=== PATIENT | female | born 1945 | race Caucasian/White ===

== ENCOUNTER → 2017-05-21 | Outpatient (CLI) | payer MEDICARE, BC ==
--- NOTE | 2017-05-21 14:15 | NM ---
EXAMINATION TYPE: NM bone scan whole body DATE OF EXAM: 05/21/2017 COMPARISON: Outside x-rays dated 05/13/2017 HISTORY: Back pain Delayed whole-body scanning was performed following the injection of 25.4 mCi Tc 99m MDP. Images acq uired 3.5 hours post injection. FINDINGS: There is a scoliotic curvature of the spine with abnormal increased uptake particularly along the lef t lateral margin of the mid and lower thoracic and upper lumbar spine most typical degenerative pritchard e or hypertrophic changes which are compatible with findings on x-ray. Faint uptake involving the remainder of the lumbar spine greatest at L4-5 and L5-S1 appears to be deg enerative. Photopenic defects involving the knees are compatible with previous surgery. Abnormal uptake involving the left maxilla likely related to periodontal disease. Abnormal uptake involving the ankles, feet and shoulders likely post arthritic. Or focal intense area of abnormal signal involving the tarsal metatarsal junction of the right foot likely related to prev ious trauma or fracture. Correlate clinically. IMPRESSION: 1. Abnormal uptake throughout the vertebral column appears to be compatible with degenerative change
== END | disposition home or self-care (01) ==
LOC: RADNMMAIN 09:46
PROVIDERS: ATTEND Physical Medicine & Rehabilitation
DX: M47.817 Spondylosis without myelopathy or radiculopathy, lumbosacral region (principal); M54.6 Pain in thoracic spine; Z96.653 Presence of artificial knee joint, bilateral
CPT/HCPCS: 78306; A9503

== ENCOUNTER 2018-12-26 14:05 | Emergency (ER) | payer MEDICARE, BC ==
[2018-12-26] MEDS ORDERED: MORPHINE SULFATE 4 MG/ML SYRINGE IVP STA (14:53)
--- NOTE | 2018-12-26 16:25 | XR ---
EXAMINATION TYPE: XR humerus LT DATE OF EXAM: 12/26/2018 COMPARISON: Shoulder same date HISTORY: Fall, pain TECHNIQUE: 2 view left humerus FINDINGS: There is a fracture through the surgical neck of the humerus. The humeral head articulates with the glenoid. Elbow appears intact. No additional fractures are evident IMPRESSION: 1. Fracture of the surgical neck of the left humerus.
--- NOTE | 2018-12-26 16:26 | XR ---
EXAMINATION TYPE: XR shoulder complete LT DATE OF EXAM: 12/26/2018 COMPARISON: NONE HISTORY: Pain TECHNIQUE: Shoulder examined in 3 views FINDINGS: There is a fracture of the neck of the humerus. The humeral head articulates with the glenoid. No clavicular joint hypertrophy is present IMPRESSION: 1. Fracture of the neck of the humerus.
--- NOTE | 2018-12-26 16:35 | ED ---
General Adult HPI - General Chief complaint: Fall Stated complaint: FALL/ LT ARM/SHOULDER Time Seen by Provider: 12/26/18 14:11 Source: patient, RN notes reviewed Mode of arrival: EMS Limitations: no limitations - History of Present Illness Initial comments: 73-year-old female presents to the emergency department after tripping over her carpet about 30 minutes prior to arrival. Patient denies hitting her head but does admit to left-sided neck pain. Patient states she has pain in her left shoulder. Patient denies any dizziness or lightheadedness preceding the fall.Patient has no other complaints at this time including shortness of breath , chest pain, abdominal pain, nausea or vomiting, headache, or visual changes. - Related Data Home Medications Medication Instructions Recorded Confirmed Calcium Carbonate/Vitamin D3 1 tab PO DAILY 12/26/18 12/26/18 [Calcium 500-Vit D3 200 Tablet] Cyanocobalamin (Vitamin B-12) 1,000 mcg PO DAILY 12/26/18 12/26/18 [Vitamin B-12] Multivitamins, Thera [Multivitamin 1 tab PO DAILY 12/26/18 12/26/18 (formulary)] Turmeric Root Extract [Turmeric] 500 mg PO DAILY 12/26/18 12/26/18 Vitamin B Complex 1 cap PO DAILY 12/26/18 12/26/18 Previous Rx's Medication Instructions Recorded HYDROcodone/APAP 5-325MG [[place] 1 tab PO Q6HR PRN #12 tab 12/26/18 5-325] Allergies Allergy/AdvReac Type Severity Reaction Status Date / Time nickel AdvReac Rash/Hives Verified 12/26/18 14:20 silver sulfadiazine AdvReac Rash/Hives Verified 12/26/18 14:20 [From Silvadene] Review of Systems ROS Statement: Those systems with pertinent positive or pertinent negative responses have been documented in the HPI. ROS Other: All systems not noted in ROS Statement are negative. Past Medical History Past Medical History: No Reported History History of Any Multi-Drug Resistant Organisms: None Reported Past Surgical History: Joint Replacement, Orthopedic Surgery Past Psychological History: No Psychological Hx Reported Smoking Status: Never smoker Past Alcohol Use History: Occasional Past Drug Use History: None Reported General Exam Limitations: no limitations General appearance: alert, in no apparent distress Head exam: Present: atraumatic, normocephalic, normal inspection Eye exam: Present: normal appearance, PERRL, EOMI. Absent: scleral icterus, conjunctival injection, periorbital swelling ENT exam: Present: normal exam, normal oropharynx, mucous membranes moist, TM's normal bilaterally (neg hemotympanum), normal external ear exam Neck exam: Present: normal inspection, tenderness (C7 tenderness), other (in c collar). Absent: meningismus, lymphadenopathy Respiratory exam: Present: normal lung sounds bilaterally. Absent: respiratory distress, wheezes, rales, rhonchi, stridor Cardiovascular Exam: Present: regular rate, normal rhythm, normal heart sounds. Absent: systolic murmur, diastolic murmur, rubs, gallop, clicks Extremities exam: Present: normal capillary refill (Capillary refill less than 2 seconds and radial pulse 2+ in the left upper extremity). 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 No dizziness or lightheadedness preceding this fall. CT brain shows no acute intracranial process. CT C-spine negative. However shoulder x- ray does show fracture of the neck of the humerus. Neurovascular intact in the left upper extremity. I did put sling on patient and nature she gets and out of bed on her own. Patient ambulated to the bathroom as well. Patient does have help at home from her . Patient feels comfortable going home at this time. However discussed returning here if she has any worsening symptoms or is unable to stay at home. Patient is hypertensive on presentation which is likely due to pain as she did become less hypertensive throughout her stay. Patient is asymptomatic otherwise. Disposition Clinical Impression: Fracture of neck of humerus Disposition: HOME SELF-CARE Condition: Good Instructions (If sedation given, give patient instructions): Arm Fracture in Adults (ED), Fall Prevention for Older Adults (ED) Additional Instructions: Please take pain medicine as needed. Please follow-up with orthopedics tomorrow. Please return here to the emergency department if you have any worsening symptoms. Prescriptions: HYDROcodone/APAP 5-325MG [[place] 5-325] 1 tab PO Q6HR PRN #12 tab PRN Reason: Pain Is patient prescribed a controlled substance at d/c from ED?: No Referrals: Chuckie Levin MD [Primary Care Provider] - 1-2 days Moustapha Novak MD [STAFF PHYSICIAN] - 1-2 days Time of Disposition: 17:58
--- NOTE | 2018-12-26 16:39 | CT ---
EXAMINATION TYPE: CT brain eben wo con DATE OF EXAM: 12/26/2018 COMPARISON: None HISTORY: Fall injury CT DLP: 1262.5 mGycm, Automated exposure control for dose reduction was used. CONTRAST: Patient injected with 0 mL of Isovue 300. CT of the brain is performed utilizing 3 mm thick sections through the posterior fossa and 3 mm thick sections through the remaining calvarium. Study is performed within 24 hours of arrival to the hospital. No abnormal hyperdensity is present to suggest an acute intracranial hemorrhage. No mass lesion is evident. No acute infarcts are evident. Signal within the brain appears appropriate. Ventricles and sulci are appropriate for the patient age. Paranasal sinuses and mastoid air cells within the pymij-mo-kaks are clear. IMPRESSIONS: 1. No acute intracranial process. CT cervical spine. COMPARISON: None CT of the cervical spine is performed in the axial plane at 2 mm thick sections. Reconstructed image s in the coronal, and sagittal plane are reviewed on the computer. No acute fractures are evident. Vertebral body alignment is normal. Disc heights are preserved. Vertebral body heights are preserved. No spinal canal stenosis is evident. Facet hypertrophy is present on the right at C2-C3. Uncovertebral joint hypertrophy has severe right foraminal stenosis C3-4. Intimal grade 1 spondylolisthesis of C3 anterior on C4 is present. There is loss of disc height C5-6. Uncovertebral hypertrophy is severe left foraminal stenosis at thi s. Some central spurring is present with mild anterior thecal sac compression superior endplate C6. IMPRESSIONS: 1. Degenerative disc changes with uncovertebral joint hypertrophy contributing to foraminal stenosis discussed above. 2. Minimal grade 1 spondylolisthesis of C3 anterior on C4.
[2018-12-26] MEDS ORDERED: HYDROcodone/APAP 5-325MG 1 EACH TAB PO STA (18:19)
[2018-12-26 18:35] VITALS: BP 175/86; PULSE 68; RESP 18; TEMP 98.6
== END 2018-12-26 18:32 | disposition home or self-care (01) ==
LOC: EC 14:05
DX: S42.212A Unspecified displaced fracture of surgical neck of left humerus, initial encounter for closed fracture (principal); M54.2 Cervicalgia; R03.0 Elevated blood-pressure reading, without diagnosis of hypertension; Z91.048 Other nonmedicinal substance allergy status; Z88.8 Allergy status to other drugs, medicaments and biological substances; Z96.89 Presence of other specified functional implants; W18.09XA Striking against other object with subsequent fall, initial encounter; Y92.009 Unspecified place in unspecified non-institutional (private) residence as the place of occurrence of the external cause
CPT/HCPCS: 73030; 73060; 72125; 70450; 99284; 96374; J2270

== ENCOUNTER → 2019-01-03 | Outpatient (CLI) | payer MEDICARE, BC ==
--- NOTE | 2019-01-04 05:29 | CT ---
EXAMINATION TYPE: CT shoulder LT wo con DATE OF EXAM: 01/03/2019 COMPARISON: Radiograph 12/26/2018 HISTORY: 73-year-old female Left shoulder pain after fall. TECHNIQUE: Contiguous axial scanning of the left shoulder without IV contrast. Coronal and sagittal r econstructions performed. 3-D reconstructions generated on a dedicated independent workstation. CT DLP: 279.5 mGycm Automated exposure control for dose reduction was used. FINDINGS: Moderate degenerative joint space narrowing and marginal spurring at the AC joint. No dislocation at the glenohumeral joint. There is inferior and joint subluxation noted and joint eff usion. Mild fatty infiltration of the supraspinatus muscle and mild to moderate of the infraspinatus muscle belly. There is an impacted surgical neck fracture with impaction measuring 1.2 cm. There is medial displace ment of 1.0 cm. There is anterior comminution extending along the bicipital groove and additional com minuted cortical fragments of the lateral humeral head displacement 1.2 cm. Low mild comminution extends to involve the superior facet of the greater tuberosity, no significant displacement is present here. Prominent patchy peribronchovascular opacity visualized left lower lobe probably prominent atelectasi s. IMPRESSION: 1. AT LEAST 2 PART PROXIMAL HUMERAL FRACTURE AT THE LEVEL OF THE SURGICAL NECK. THE FRACTURE SHOWS IM PACTION BY 1.2 CM AND MEDIAL DISPLACEMENT BY 1.0 CM. 2. THERE IS COMMINUTION ALONG THE LATERAL CORTICAL MARGIN WITH CORTICAL FRAGMENT DISPLACED UP TO 1.2 CM AND ADDITIONAL COMMINUTION EXTENDING INTO THE SUPERIOR FACET OF THE GREATER TUBEROSITY WITHOUT SIG NIFICANT DISPLACEMENT HERE. ADDITIONAL PROMINENT COMMINUTION ANTERIORLY ALONG THE BICIPITAL GROOVE. 3. ASSOCIATED JOINT EFFUSION AND INFERIOR GLENOHUMERAL JOINT SUBLUXATION. 4. MODERATE AC JOINT OA. 5. MILD ATROPHY OF THE SUPRASPINATUS MUSCLE AND MILD TO MODERATE OF THE INFRASPINATUS MUSCLE. FURTHER CLINICAL CORRELATION RECOMMENDED FOR THE POSSIBILITY OF UNDERLYING ROTATOR CUFF TEAR.
== END ==
LOC: RADCTMAIN 15:54
PROVIDERS: ATTEND Orthopaedic Surgery
DX: S42.222A 2-part displaced fracture of surgical neck of left humerus, initial encounter for closed fracture (principal); M62.512 Muscle wasting and atrophy, not elsewhere classified, left shoulder; M19.012 Primary osteoarthritis, left shoulder

== ENCOUNTER 2021-03-27 18:50 | Emergency (ER) | payer MEDICARE, BC ==
[2021-03-27] MEDS ORDERED: HYDROmorphone 0.5 MG/0.5 ML SYRINGE IVP STA (19:19)
--- NOTE | 2021-03-27 19:28 | ED ---
General Adult HPI - General Chief complaint: Headache Stated complaint: hypertensive Time Seen by Provider: 03/27/21 19:14 Source: patient, RN notes reviewed, old records reviewed Mode of arrival: EMS Limitations: no limitations - History of Present Illness Initial comments: 75-year-old female presenting with chief complaint of headache. Headache began one hour prior to arrival. She was transported by EMS. She denies any anticoagulation. She is complaining of a left-sided headache which is both retro-orbital and occipital. She reports some associated neck discomfort as well. No focal numbness or weakness. No chest pain. No vomiting. She states that she has felt unwell for the past 2 weeks, and low energy. Her had similar symptoms. She has not been vaccinated against coronavirus. - Related Data Home Medications Medication Instructions Recorded Confirmed Cyanocobalamin (Vitamin B-12) 1,000 mcg PO DAILY 12/26/18 03/27/21 [Vitamin B-12] Vitamin B Complex 1 cap PO DAILY 12/26/18 03/27/21 Cholecalciferol [Vitamin D3 (25 25 mcg PO DAILY 03/27/21 03/27/21 Mcg = 1000 Iu)] Sennosides/Docusate Sodium [Senna 1 cap PO DAILY 03/27/21 03/27/21 Plus 8.6-50 mg Softgel] buPROPion SR [Wellbutrin Sr] 100 mg PO DAILY PRN 03/27/21 03/27/21 Allergies Allergy/AdvReac Type Severity Reaction Status Date / Time nickel AdvReac Rash/Hives Verified 03/27/21 19:57 silver sulfadiazine AdvReac Rash/Hives Verified 03/27/21 19:57 [From William] Review of Systems ROS Statement: Those systems with pertinent positive or pertinent negative responses have been documented in the HPI. ROS Other: All systems not noted in ROS Statement are negative. Past Medical History Past Medical History: No Reported History History of Any Multi-Drug Resistant Organisms: None Reported Past Surgical History: Joint Replacement, Orthopedic Surgery Past Psychological History: No Psychological Hx Reported Smoking Status: Never smoker Past Alcohol Use History: Occasional Past Drug Use History: None Reported General Exam Limitations: no limitations General appearance: alert, in no apparent distress Head exam: Present: atraumatic, normocephalic Eye exam: Present: normal appearance, PERRL ENT exam: Present: normal exam Neck exam: Present: normal inspection. Absent: tenderness, meningismus Respiratory exam: Present: normal lung sounds bilaterally. Absent: respiratory distress, wheezes Cardiovascular Exam: Present: regular rate, normal rhythm GI/Abdominal exam: Present: soft. Absent: distended, tenderness, guarding, rebound Extremities exam: Present: normal inspection, normal capillary refill. Absent: pedal edema Neurological exam: Present: alert, oriented X3, CN II-XII intact. Absent: motor sensory deficit Psychiatric exam: Present: normal affect, normal mood Skin exam: Present: warm, dry, intact. Absent: cyanosis, diaphoretic Course Vital Signs 03/27/21 18:55 Temperature 98.1 F Pulse Rate 82 Respiratory 16 Rate Blood Pressure 196/105 O2 Sat by Pulse 96 Oximetry - Reevaluation(s) Reevaluation #1: 03/27/21 21:26 On reevaluation feeling much better, blood pressure has improved. EKG Findings - EKG Comments: EKG Findings:: Normal sinus rhythm, rate of 85, NE interval 192, QRS duration 84, QTC 435, no ST segment elevation. Medical Decision Making - Medical Decision Making 75-year-old female presented with chief complaint of headache in 2 weeks of low energy not feeling well. Her headache was OF a sudden in onset and therefore both CT and CT angiography was performed. This was within one to 2 hours of symptom onset. This is negative for intracranial hemorrhage, no acute findings, angiography negative for aneurysm. She has a normal CBC, normal CMP. Given the 2 weeks of malaise I did perform a nasal swab for coronavirus which is positive. She's outside and treatment window as he symptoms have been present for 2 weeks. She will monitor her elevated blood pressure at home and treat a blood pressure log for her primary care physician. She has no chest pain or dyspnea. No hypoxia. She will follow with her primary care regarding headache as well. She is given return parameters. - Lab Data Result diagrams: 03/27/21 19:45 03/27/21 19:45 Lab Results 03/27/21 03/27/21 03/27/21 Range/Units 19:45 19:45 19:45 WBC 5.5 (3.8-10.6) k/uL RBC 4.52 (3.80-5.40) m/uL Hgb 14.5 (11.4-16.0) gm/dL Hct 42.2 (34.0-46.0) % MCV 93.4 (80.0-100.0) fL MCH 32.1 (25.0-35.0) pg MCHC 34.4 (31.0-37.0) g/dL RDW 11.4 L (11.5-15.5) % Plt Count 279 (150-450) k/uL MPV 7.8 Neutrophils % 71 % Lymphocytes % 18 % Monocytes % 7 % Eosinophils % 2 % Basophils % 1 % Neutrophils # 3.9 (1.3-7.7) k/uL Lymphocytes # 1.0 (1.0-4.8) k/uL Monocytes # 0.4 (0-1.0) k/uL Eosinophils # 0.1 (0-0.7) k/uL Basophils # 0.0 (0-0.2) k/uL PT 9.9 (9.0-12.0) sec INR 0.9 (<1.2) APTT 20.3 L (22.0-30.0) sec Sodium 135 L (137-145) mmol/L Potassium 4.2 (3.5-5.1) mmol/L Chloride 101 (98-107) mmol/L Carbon Dioxide 28 (22-30) mmol/L Anion Gap 6 mmol/L BUN 12 (7-17) mg/dL Creatinine 0.79 (0.52-1.04) mg/dL Est GFR (CKD-EPI)AfAm 85 (>60 ml/min/1.73 sqM) Est GFR (CKD-EPI)NonAf 74 (>60 ml/min/1.73 sqM) Glucose 92 (74-99) mg/dL Calcium 9.5 (8.4-10.2) mg/dL Magnesium 2.0 (1.6-2.3) mg/dL Total Bilirubin 0.7 (0.2-1.3) mg/dL AST 35 (14-36) U/L ALT 18 (4-34) U/L Alkaline Phosphatase 86 (38-126) U/L Total Protein 6.3 (6.3-8.2) g/dL Albumin 3.3 L (3.5-5.0) g/dL Coronavirus (PCR) (Not Detectd) 03/27/21 Range/Units 21:02 WBC (3.8-10.6) k/uL RBC (3.80-5.40) m/uL Hgb (11.4-16.0) gm/dL Hct (34.0-46.0) % MCV (80.0-100.0) fL MCH (25.0-35.0) pg MCHC (31.0-37.0) g/dL RDW (11.5-15.5) % Plt Count (150-450) k/uL MPV Neutrophils % % Lymphocytes % % Monocytes % % Eosinophils % % Basophils % % Neutrophils # (1.3-7.7) k/uL Lymphocytes # (1.0-4.8) k/uL Monocytes # (0-1.0) k/uL Eosinophils # (0-0.7) k/uL Basophils # (0-0.2) k/uL PT (9.0-12.0) sec INR (<1.2) APTT (22.0-30.0) sec Sodium (137-145) mmol/L Potassium (3.5-5.1) mmol/L Chloride (98-107) mmol/L Carbon Dioxide (22-30) mmol/L Anion Gap mmol/L BUN (7-17) mg/dL Creatinine (0.52-1.04) mg/dL Est GFR (CKD-EPI)AfAm (>60 ml/min/1.73 sqM) Est GFR (CKD-EPI)NonAf (>60 ml/min/1.73 sqM) Glucose (74-99) mg/dL Calcium (8.4-10.2) mg/dL Magnesium (1.6-2.3) mg/dL Total Bilirubin (0.2-1.3) mg/dL AST (14-36) U/L ALT (4-34) U/L Alkaline Phosphatase (38-126) U/L Total Protein (6.3-8.2) g/dL Albumin (3.5-5.0) g/dL Coronavirus (PCR) Detected A (Not Detectd) Disposition Clinical Impression: COVID-19, Hypertension, Headache Disposition: HOME SELF-CARE Condition: Good Instructions (If sedation given, give patient instructions): Acute Headache (ED), Coronavirus Disease 2019 (COVID-19), Hypertension in the Older Adult (ED) Additional Instructions: Please follow up with her primary care physician. Please return to the emergency department with any worsening or changing symptoms. Is patient prescribed a controlled substance at d/c from ED?: No Referrals: Sol Fraire MD [Primary Care Provider] - 1-2 days Time of Disposition: 21:28
--- NOTE | 2021-03-27 19:39 | CT ---
EXAMINATION TYPE: CT brain wo con DATE OF EXAM: 03/27/2021 COMPARISON: 12/26/2018 HISTORY: head CT DLP: 1142 mGycm Automated exposure control for dose reduction was used. Ventricles have normal size. There is no mass effect nor midline shift. There is no sign of intracran ial hemorrhage. There is mild cerebral atrophy. Calvarium is intact. The skull base is intact. IMPRESSION: Mild atrophy appropriate for age. No acute intracranial abnormality.
--- NOTE | 2021-03-27 19:44 | CT ---
EXAMINATION TYPE: CT angio COW [place] DATE OF EXAM: 03/27/2021 COMPARISON: None HISTORY: head CT DLP: 1122 mGycm Automated exposure control for dose reduction was used. CONTRAST: Performed with IV Contrast, patient injected with 65ml mL of Isovue 300. Images were obtained from the skull base to the vertex of the brain with IV contrast. There are 3-D p ost processed images. There is arterial flow in the vertebrobasilar artery system. There is flow in the left posterior comm unicating artery. There is arterial flow in the anterior middle and posterior cerebral arteries bilat erally. There is no mass effect. I see no evidence of intracranial aneurysm or neovascularity. There is normal enhancement of the venous sinuses. The intracranial internal carotid arteries appear intact . IMPRESSION: Normal CT angiogram of the brain.
[2021-03-27 19:51] LABS: Basophils % (A) 1 %; Eosinophils # (A) 0.1 k/uL (0-0.7); Eosinophils % (A) 2 %; HCT 42.2 % (34.0-46.0); HGB 14.5 gm/dL (11.4-16.0); Lymphocytes % (A) 18 %; MCH 32.1 pg (25.0-35.0); MCHC 34.4 g/dL (31.0-37.0); MCV 93.4 fL (80.0-100.0); Mean Platelet Volume 7.8; Monocytes # (A) 0.4 k/uL (0-1.0); Monocytes % (A) 7 %; Neutrophils # (A) 3.9 k/uL (1.3-7.7); Neutrophils % (A) 71 %; Platelet Count 279 k/uL (150-450); RBC 4.52 m/uL (3.80-5.40); RDW 11.4 % (11.5-15.5); WBC 5.5 k/uL (3.8-10.6)
[2021-03-27] MEDS ORDERED: ACETAMINOPHEN TAB 500 MG TAB PO STA (19:52)
[2021-03-27] MEDS ORDERED: SODIUM CHLORIDE 0.9% 500 ML 500 ML IV ONE ×2 (19:52→20:28)
[2021-03-27 20:07] LABS: Albumin 3.3 g/dL (3.5-5.0); Calcium 9.5 mg/dL (8.4-10.2); Potassium 4.2 mmol/L (3.5-5.1); Total Bilirubin 0.7 mg/dL (0.2-1.3); Total Protein 6.3 g/dL (6.3-8.2)
[2021-03-27 20:13] LABS: INR 0.9 (<1.2); Prothrombin Time 9.9 sec (9.0-12.0)
[2021-03-27 20:16] LABS: Partial Thromboplastin Time 20.3 sec (22.0-30.0)
[2021-03-27] MEDS ORDERED: amLODIPine 5 MG TAB PO STA (20:28)
[2021-03-27] MEDS ORDERED: ONDANSETRON 4 MG/2 ML VIAL IVP STA (21:48)
[2021-03-27] MEDS ORDERED: PANTOPRAZOLE 40 MG/10 ML VIAL IVP STA (22:46)
[2021-03-27 23:27] VITALS: BP 153/82; PULSE 70; RESP 18; TEMP 98.3
== END 2021-03-27 23:05 | disposition home or self-care (01) ==
LOC: EC 18:50
DX: U07.1 COVID-19 (principal); I10 Essential (primary) hypertension; Z79.899 Other long term (current) drug therapy
CPT/HCPCS: 99285 ×2; 96374 ×2; 96375 ×3; 96361 ×4; 36415; 93005; 80053; 83735; 85025; 85610; 85730; 87635; 70496; 70450; J2405; C9113; J1170; Q9967

== ENCOUNTER → 2024-01-20 | Outpatient (CLI) | payer MEDICARE, BC ==
--- NOTE | 2024-01-20 13:21 | US ---
EXAMINATION TYPE: US venous doppler duplex UE LT DATE OF EXAM: 01/20/2024 COMPARISON: 2010 and 2012 [facility] CLINICAL INDICATION: Female, 78 years old with history of I82.629 ACUTE EMBOLISM AND THROMBOSIS OF DE EP VN UNSP UP EXT; Patient has a large bruise at the left upper extremity. Patient denies any injury SIDE PERFORMED: Left Left Arm: Negative for DVT IMPRESSION: Grayscale, color doppler, spectral doppler imaging performed of the deep veins of the upper extremiti es. There is normal flow, compressibility and vascular waveforms.
== END | disposition home or self-care (01) ==
LOC: RADUSWWP 12:50
PROVIDERS: ATTEND Family Medicine
DX: I82.622 Acute embolism and thrombosis of deep veins of left upper extremity (principal); M79.662 Pain in left lower leg; M79.622 Pain in left upper arm

== ENCOUNTER → 2024-03-08 | Outpatient (CLI) | payer MEDICARE, BC ==
[2024-03-08 14:16] LABS: Partial Thromboplastin Time 27.4 sec (22.0-30.0); Prothrombin Time 10.8 sec (10.0-12.5)
[2024-03-08 19:07] LABS: HGB 14.9 g/dL (12.0-15.0); MCH 31.6 pg (27.0-32.0); MCHC 33.1 g/dL (32.0-37.0); MCV 95.5 FL (80.0-97.0); Mean Platelet Volume 11.1 FL (9.5-12.2); NRBC Per 100 WBC 0 X 10*3/uL (0.00-0.01); Platelet Count 274 X 10*3/uL (140-440); RBC 4.71 X 10*6/uL (4.10-5.20); RDW 12.1 % (11.5-14.5); WBC 10.12 X 10*3/uL (4.50-10.00)
[2024-03-08 20:56] LABS: ALT 15 U/L (8-44); AST 26 U/L (13-35); Albumin 4.1 g/dL (3.8-4.9); Albumin/Globulin Ratio 1.41 Ratio (1.60-3.17); Alkaline Phosphatase 93 U/L (41-126); BUN/Creat Ratio 15.11 Ratio (12.00-20.00); Blood Urea Nitrogen 13.6 mg/dL (9.0-27.0); Calcium 10.1 mg/dL (8.7-10.3); Carbon Dioxide 25.7 mmol/L (21.6-31.8); Chloride 99 mmol/L (96-109); Globulin 2.9 g/dL (1.6-3.3); Glucose 85 mg/dL (70-110); Potassium 4.8 mmol/L (3.5-5.5); Sodium 136 mmol/L (135-145); Total Bilirubin 0.5 mg/dL (0.3-1.2)
== END | disposition home or self-care (01) ==
LOC: LABPAT 11:55
PROVIDERS: ATTEND Orthopaedic Surgery
DX: Z01.818 Encounter for other preprocedural examination (principal); Z22.322 Carrier or suspected carrier of Methicillin resistant Staphylococcus aureus; M16.12 Unilateral primary osteoarthritis, left hip; I25.2 Old myocardial infarction; R94.31 Abnormal electrocardiogram [ECG] [EKG]
CPT/HCPCS: 36415; 80053; 83036; 85027; 85610; 85730; 86850; 86900; 86901; 87070; 93005

== ENCOUNTER 2024-03-16 10:52 | Day surgery (SDC) | payer MEDICARE, BC ==
[2024-03-11 13:29] VITALS: BMI 29.8
[~2024-03-16 10:52] MED LIST: ACETAMINOPHEN TAB 500 MG TAB PO PRN; DEXAMETHASONE SOD PHOSPHATE 10 MG/ML 1 ML VIAL IV PRN; DOCUSATE 100 MG CAP PO PRN; FAMOTIDINE 20 MG/2 ML VIAL IVP PRN; HYDROmorphone 0.5 MG/0.5 ML SYRINGE IVP PRN; KETOROLAC 15 MG/ML 1 ML VIAL IVP PRN; LACTATED RINGERS 1,000 ML IV SCH; LIDOCAINE 1% (10MG/ML) FOR IV START INTRADERMA PRN; ONDANSETRON 4 MG/2 ML VIAL IVP PRN; ROPIVACAINE/EPI/CLONIDINE/KET 50 ML SYRINGE MISCELLANE PRN; TRANEXAMIC 1,000 MG/100ML-NACL 1,000 MG in SALINE 1 100ML.BAG IV PRN; TRANEXAMIC 1,000 MG/100ML-NACL 1,000 MG in SALINE 1 100ML.BAG IVPB PRN; oxyCODONE ER 10 MG TAB.ER.12H PO PRN
[2024-03-16 12:30] VITALS: BP 167/81; PULSE 66; RESP 16; TEMP 97.6
[2024-03-16] MEDS: NYSTATIN 100,000 UNIT/GM POWD 15 GM TOPICAL SCH (12:58)
== END 2024-03-16 12:59 | disposition home or self-care (01) ==
LOC: OR 10:52
PROVIDERS: ATTEND Orthopaedic Surgery
DX: Z53.8 Procedure and treatment not carried out for other reasons (principal); M16.12 Unilateral primary osteoarthritis, left hip; E03.9 Hypothyroidism, unspecified; I10 Essential (primary) hypertension; F10.90 Alcohol use, unspecified, uncomplicated; Z79.890 Hormone replacement therapy; Z79.899 Other long term (current) drug therapy; Z91.040 Latex allergy status; Z91.030 Bee allergy status; Z88.8 Allergy status to other drugs, medicaments and biological substances

== ENCOUNTER → 2024-07-12 | Outpatient (CLI) | payer MEDICARE, BC ==
[2024-07-12 12:43] LABS: Partial Thromboplastin Time 26.5 sec (22.0-30.0); Prothrombin Time 10.7 sec (10.0-12.5)
[2024-07-12 15:13] LABS: HCT 43.2 % (37.2-46.3); HGB 14.5 g/dL (12.0-15.0); MCH 31.5 pg (27.0-32.0); MCHC 33.6 g/dL (32.0-37.0); MCV 93.9 FL (80.0-97.0); Mean Platelet Volume 11.1 FL (9.5-12.2); NRBC Per 100 WBC 0 X 10*3/uL (0.00-0.01); Platelet Count 192 X 10*3/uL (140-440); WBC 5.66 X 10*3/uL (4.50-10.00)
[2024-07-12 19:27] LABS: ALT 19 U/L (8-44); AST 30 U/L (13-35); Albumin/Globulin Ratio 1.74 Ratio (1.60-3.17); Alkaline Phosphatase 95 U/L (41-126); Blood Urea Nitrogen 13.5 mg/dL (9.0-27.0); Carbon Dioxide 26.5 mmol/L (21.6-31.8); Chloride 103 mmol/L (96-109); Globulin 2.3 g/dL (1.6-3.3); Glucose 110 mg/dL (70-110); Potassium 4.9 mmol/L (3.5-5.5); Sodium 139 mmol/L (135-145); Total Bilirubin 0.5 mg/dL (0.3-1.2); Total Protein 6.3 g/dL (6.2-8.2)
== END | disposition home or self-care (01) ==
LOC: LABPAT 11:17
PROVIDERS: ATTEND Orthopaedic Surgery
DX: Z01.812 Encounter for preprocedural laboratory examination (principal); E11.9 Type 2 diabetes mellitus without complications; Z22.322 Carrier or suspected carrier of Methicillin resistant Staphylococcus aureus
CPT/HCPCS: 36415; 80053; 83036; 85027; 85610; 85730; 86850; 86900; 86901; 87070

== ENCOUNTER 2024-07-20 10:29 | Inpatient (IN) | payer MEDICARE, BC ==
[2024-07-14 12:43] VITALS: BMI 27.0
[~2024-07-20 10:29] MED LIST changes: -ACETAMINOPHEN TAB 500 MG TAB PO PRN; -DEXAMETHASONE SOD PHOSPHATE 10 MG/ML 1 ML VIAL IV PRN; -DOCUSATE 100 MG CAP PO PRN; -FAMOTIDINE 20 MG/2 ML VIAL IVP PRN; -HYDROmorphone 0.5 MG/0.5 ML SYRINGE IVP PRN; -KETOROLAC 15 MG/ML 1 ML VIAL IVP PRN; -LACTATED RINGERS 1,000 ML IV SCH; -LIDOCAINE 1% (10MG/ML) FOR IV START INTRADERMA PRN; -ONDANSETRON 4 MG/2 ML VIAL IVP PRN; -ROPIVACAINE/EPI/CLONIDINE/KET 50 ML SYRINGE MISCELLANE PRN; -oxyCODONE ER 10 MG TAB.ER.12H PO PRN
[2024-07-20] MEDS ORDERED: LIDOCAINE 1% (10MG/ML) FOR IV START INTRADERMA PRN (10:51)
[2024-07-20] MEDS ORDERED: HYDROmorphone 0.5 MG/0.5 ML SYRINGE IVP PRN ×4 (10:51→15:20)
[2024-07-20] MEDS: ACETAMINOPHEN TAB 500 MG TAB PO PRN (11:21)
[2024-07-20] MEDS: DOCUSATE 100 MG CAP PO PRN (11:21)
[2024-07-20] MEDS: oxyCODONE ER 10 MG TAB.ER.12H PO PRN (11:21)
[2024-07-20] MEDS: DEXAMETHASONE SOD PHOSPHATE 10 MG/ML 1 ML VIAL IV PRN (11:22)
[2024-07-20] MEDS: ONDANSETRON 4 MG/2 ML VIAL IVP PRN (11:23)
[2024-07-20] MEDS: FAMOTIDINE 20 MG/2 ML VIAL IVP PRN (11:23)
[2024-07-20] MEDS: KETOROLAC 15 MG/ML 1 ML VIAL IVP PRN (11:23)
[2024-07-20] MEDS: LACTATED RINGERS 1,000 ML IV SCH (11:24)
[2024-07-20] MEDS: IV FLUID CONTINUATION 1,000 ML IV ONE (11:27)
[2024-07-20] MEDS: MIDAZOLAM 2 MG/2 ML VIAL IV ONE (11:40)
--- NOTE | 2024-07-20 11:52 | P.ANPRN ---
Procedure Note - Anesthesia - Nerve Block Performed Left Haroldo Single Time Out Performed: Yes Date of Procedure: 07/20/24 Procedure Start Time: 11:39 Procedure Stop Time: 11:44 Location of Patient: PreOp Indication: Acute Post-Operative Pain, Analgesia, Requested by Surgeon Sedation Type: Sedate with meaningful contact maintained Preparation: Sterile Prep Position: Supine Catheter: None Needle Types: Pajunk Needle Gauge: 21 Ultrasound used to visualize needle placement: Yes Ultrasound used to observe medication spread: Yes Injectate: 0.5% Ropivacaine (see comment for volume) (Ropiv 20ml+Decadron 4mg) Blood Aspirated: No Pain Paresthesia on Injection Noted: No Resistance on Injection: Normal Image Stored and Saved: Yes Events: Uneventful and Well Tolerated
[2024-07-20] MEDS ORDERED: DEXAMETHASONE SOD PHOSPHATE 4 MG/ML 1 ML VIAL ONE (12:34)
[2024-07-20] MEDS ORDERED: PHENYLEPHRINE-0.9% NACL SYG 1,000 MCG/10 ML SYRINGE ONE (12:34)
[2024-07-20] MEDS ORDERED: ROCURONIUM 10 MG/ML (5 ML VIAL) IV ONE (12:34)
[2024-07-20] MEDS ORDERED: KETAMINE HCL IN 0.9 % NACL 50 MG/5 ML SYRINGE ONE (12:34)
[2024-07-20] MEDS ORDERED: NEOSTIGMINE 1 MG/ML 10 ML VIAL ONE (12:34)
[2024-07-20] MEDS ORDERED: ROPIVACAINE 5 MG/ML 30 ML VIAL ONE (12:34)
[2024-07-20] MEDS ORDERED: fentaNYL (PF) 50 MCG/ML 2 ML AMP ONE (12:34)
[2024-07-20] MEDS ORDERED: GLYCOPYRROLATE 0.2 MG/ML 2 ML VIAL ONE (12:34)
[2024-07-20] MEDS ORDERED: SUCCINYLCHOLINE CHLORIDE 200 MG/10 ML VIAL IV ONE (12:34)
[2024-07-20] MEDS ORDERED: TRANEXAMIC 1,000 MG/100ML-NACL PREMIX BAG ONE (12:34)
[2024-07-20] MEDS ORDERED: LIDOCAINE 1% INJ 10MG/ML (20 ML MDV) ONE (12:34)
[2024-07-20] MEDS ORDERED: PROPOFOL 10 MG/ML 20 ML VIAL IV ONE (12:34)
[2024-07-20] MEDS: ROPIVACAINE 246.25 MG, EPINEPHrine 0.5 MG, KETOROLAC (30 mg/mL) 30 MG, cloNIDine HCL/PF... MISCELLANE PRN (13:37)
[2024-07-20] MEDS: LACTATED RINGERS 1,000 ML IV ONE (14:19)
[2024-07-20] MEDS ORDERED: NALOXONE 0.4 MG/ML 1 ML VIAL IV PRN (15:20)
[2024-07-20] MEDS ORDERED: ONDANSETRON 4 MG/2 ML VIAL IVP PRN (15:20)
[2024-07-20] MEDS ORDERED: MAGNESIUM HYDROXIDE 2,400 MG/30 ML CUP PO PRN (15:20)
[2024-07-20] MEDS ORDERED: hydrOXYzine pamoate 25 MG CAP PO PRN (15:20)
--- NOTE | 2024-07-20 15:26 | FL ---
EXAMINATION TYPE: FL guidance operating room DATE OF EXAM: 07/20/2024 HISTORY: Fluoroscopy time Total dose area product (DAP) in uGy*m?, mGy*cm? (or similar): 1.0550 IMPRESSION: 1. Fluoroscopy time.
--- NOTE | 2024-07-20 15:27 | XR ---
EXAMINATION TYPE: XR Hip Complete LT DATE OF EXAM: 07/20/2024 COMPARISON: NONE HISTORY: Left hip surgery TECHNIQUE: 9 views submitted FINDINGS: Limited resolution intraoperative views of the left hip demonstrate intraoperative and post surgical changes. IMPRESSION: See above.
--- NOTE | 2024-07-20 15:32 | P.OP ---
Date of Procedure: 07/20/24 Preoperative Diagnosis: severe left hip osteoarthritis Postoperative Diagnosis: severe left hip osteoarthritis Procedure(s) Performed: left direct anterior total hip arthroplasty Implants: 1. Kassi Trident II Acetabular Cup, Size #50 2. Jennings Accolade C Size #4 Femoral Stem, Standard Offset 3. Dual Mobility OD 38 mm, ID 28 mm, +4 mm neck Anesthesia: GETA, regional Surgeon: Heath Schwarz Account Maintenance Representative #1: Abdullahi Tavarez Estimated Blood Loss (ml): 200 IV fluids (ml): 800 Pathology: none sent Condition: stable Disposition: PACU Indications for Procedure: I had a long discussion with the patient in the office on the potential risks and complications of an elective total hip replacement through a direct anterior approach. Risks discussed include, but are certainly not limited to, risks from anesthesia, superficial infection requiring local wound care or antibiotics, deep mendez-prosthetic joint infection and the treatment required to eradicate infection, intraoperative fracture, postoperative periprosthetic fracture, damage to local blood vessels or nerves particularly the lateral femoral cutaneous nerve, delayed wound healing requiring local wound care or possibly surgical debridement, hip dislocation, leg length discrepancy, soft tissue irritation around the total hip implant such as iliopsoas tendinitis or trochanteric bursitis, wear and osteolysis from the implants, squeaking or audible noises, groin pain, thigh pain, heterotopic ossification, stiffness, aseptic loosening of the implants, dissatisfaction with surgical outcome, need for revision surgery, DVT, PE, swelling of the operative extremity, acute coronary event, stroke, failure to thrive, and possibly loss of life or limb. The patient understands that while these are the most common complications after an elective hip replacement there are certainly other less common complications possible. They were given ample time to ask questions regarding the potential complications of a hip replacement. Following our discussion the patient provided their verbal and written consent to go forward with an elective total hip replacement. Operative Findings: severe left hip osteoarthritis with complete loss of the articular cartilage and flattening of the femoral head. There was also a very narrow and deficient anterior wall. bone quality was exceedingly poor on both the acetabular and femoral side. Description of Procedure: The patient was identified in the preoperative holding area and the correct hip was marked with my initials. I reviewed the procedure and consent with the patient. All of their questions were answered. The patient was then brought back into the operating room by anesthesia. While on the [facility] anesthesia was administered by the anesthesia team. Preoperative antibiotics and tranexamic acid were also given. After the patient was under anesthesia I examined their ankles to determine their preoperative leg length discrepancy. The skin over the anterior aspect of the hip was shaved to remove hair over the site of planned incision. Both feet and ankles were padded with webril and boots for the [place] were applied. The patient was then carefully transferred onto the [place] table. A perineal post was immediately placed. The arms were placed on arm holders and were well-padded. Both boots were secured to the spars on the [place] table. The patient was positioned so that the pelvis was centered over the post. Nonsterile drapes were applied. A timeout was performed identifying the correct patient, operative extremity, and procedure. At this point fluoroscopy was brought in to take preoperative images of the pelvis and operative hip. Using the standing AP pelvis from the office as a template, a comparable image was obtained with fluoroscopy. A metallic bar was used to create a bi-ischial line for use as a reference to leg length adjustments during the procedure. Global offset was also measured on both the operative and nonoperative leg. Fluoroscopy was then brought out and a pre-scrub using a chlorhexidine scrub brush was performed. The operative limb was then prepped and draped in the standard sterile fashion. An anterior longitudinal incision was made lateral and distal to the ASIS. The skin and subcutaneous tissues were incised sharply. The underlying tensor fascia was identified and incised in its midportion. The fascia was dissected free from the underlying muscle and the muscle belly was retracted. A blunt tipped cobra retractor was placed over the superior neck under the muscle fibers of the gluteus minimus. The deep enveloping fascia of the tensor was incised. The anterior leash of vessels were then identified and cauterized. The fascia between the rectus and the capsule was then incised and the pre-capsular fat was excised. A second Cobra was placed inferior to the neck. The interval between the rectus and iliocapsularis and the hip capsule was developed and a retractor was placed carefully over the anterior rim of the acetabulum. A T-shaped anterior capsulotomy was performed. The superior capsular leaflet was left in place in the inferior capsular flap was excised. The Cobra retractors were placed intracapsularly. We then made a femoral neck osteotomy according to preoperative and intraoperative templating and confirmed the level of the osteotomy using fluoroscopic imaging. The femoral head was removed, passed off to the back table, and sized. The superior capsular flap was excised. Retractors were placed circumferentially exposing the acetabulum. We then circumferentially debrided the acetabulum free of labrum and osteophytes. The pulvinar was removed to fully visualize the cotyloid fossa. We then sequentially reamed to achieve peripheral fit and excellent bleeding subchondral bone. The socket was thoroughly irrigated. The acetabular component was impacted into the appropriate position using fluoroscopy to guide version, inclination, and depth of insertion taking care to have a comparable image of the AP pelvis to the standing image taken in the office. An excellent press-fit was achieved and final position was confirmed using fluoroscopy. The press fit was augmented with bony cancellus dome screws. The liner was then impacted into the socket. Attention was then turned to the femur. The remnant dorsal lateral capsule was excised. The short external rotators were visible and protected. A bone hook was used to confirm appropriate translation of the trochanter away from the acetabulum. The leg was then extended and adducted and the bone hook was used to elevate the femur for broaching. On inspection of the patient's proximal femur, they appeared to have poor bone quality so I elected to proceed with cemented fixation of the femoral component. A box osteotome and blunt tipped canal sound was then utilized to gain access to the femoral canal. We then sequentially broached the femur in appropriate anteversion until torsional stability was achieved and the implant was felt to have reached the appropriate size to allow trialing. The neck cut was brought flush to the trial broach with a calcar planar. A trial neck and head were then placed onto the broach and the hip was atraumatically reduced under direct visualization. External rotation to 90 was performed to assess stability. Fluoroscopy was brought in. An AP and lateral fluoroscopic image of the proximal femur was obtained to assess position and fill of the trial broach. An AP of the pelvis was then obtained and matched to the preoperative image taken. A bi-ischial bar was then placed and measurements were taken to assess changes in length and offset. The hip was then carefully dislocated, the proximal femur was exposed, and the trial implants were removed. The proximal femur was then prepared for cementing. The canal was thoroughly irrigated with pulsatile lavage to remove blood and marrow contents. A cement restrictor was placed to a depth just distal to the tip of the final implant. Epinephrine-soaked gauze was then packed into the proximal femur. 2 bags of cement were then mixed using a centrifuge and placed into a cement gun. Anesthesia was notified that cementing was about to commence to make sure the patient was appropriately ventilated and hydrated. Once the cement had reached appropriate consistency, the cement gun was used to fill the canal in a retrograde fashion starting at the restrictor. Cement was then pressurized into the canal with a blue tipped voucher examiner. The stem was then carefully introduced into the cement taking care to guide the implant into appropriate version. The stem was held in position until the cement had fully set. All extra cement was removed while the cement was hardening. The trunnion was cleansed and the final head was tapped into place to engage the Gonzales taper. The acetabulum was irrigated and visualized to be free of debris. The hip was carefully reduced. Stability was checked clinically with external rotation to 90 and there was no evidence of instability. Final fluoroscopic images were taken. The wound was then thoroughly irrigated and soaked with a dilute Betadine rinse for 3 minutes. 3 L of sterile saline was irrigated through the wound using pulsatile lavage. Local anesthetic cocktail was injected into the soft tissues around the surgical field. The wound was then closed in layers. A sterile dressing was placed over the surgical incision. The drapes were taken down and the patient was carefully transferred off of the [place] table. Following removal of the boots the leg lengths felt acceptable. The patient was then taken to recovery room having tolerated the procedure well. Abdullahi Tavarez PA-C was required as a skilled higher level teaching assistant due to the complexity of surgery for patient positioning, draping, exposure, retraction, closure of wound, and application of dressing. PLAN: The patient can weight-bear as tolerated on the operative extremity. 2 doses of postoperative antibiotics. DVT prophylaxis with aspirin 81 mg twice a day based on preoperative risk stratification. Physical therapy for gait training.
[2024-07-20] MEDS: SODIUM CHLORIDE 0.9% 1,000 ML IV SCH (16:45)
[2024-07-20] MEDS: HYDROcodone/APAP 5-325MG 1 EACH TAB PO PRN (17:20)
[2024-07-20] MEDS ORDERED: MELOXICAM 7.5 MG TAB PO PRN (18:00)
--- NOTE | 2024-07-20 19:28 | P.CONS ---
History of Present Illness - Reason for Consult Consult date: 07/20/24 Medical management Requesting physician: Heath Schwarz - Chief Complaint Left hip surgery - History of Present Illness This is a pleasant 79-year-old patient follows with Dr. Guerrero. Chronic stable medical conditions include hypertension, hypothyroid, PAD, tinnitus, significant urinary incontinence, depression osteoarthritis. Does use a cane and a walker at home. at the bedside. Patient is undergone left total hip arthroplasty. Pain controlled. No nausea vomiting. No cardiac symptoms. Review of systems: GEN.: Tired EYES: None HEENT: None NECK: None RESPIRATORY: None CARDIOVASCULAR: None GASTROINTESTINAL: None GENITOURINARY: Urine incontinence MUSCULOSKELETAL: Joint pains LYMPHATICS: None HEMATOLOGICAL: None PSYCHIATRY: None NEUROLOGICAL: Does use a cane and a walker Social history: Lives with her . No history of smoking alcohol. Physical examination: VITAL SIGNS: Afebrile, 49, 112 x 64, 95% room air GENERAL: BMI 26.4, reclining bed awake comfortable. EYES: Pupils equal. Conjunctiva jackie l. HEENT: External appearance of nose and ears normal, oral cavity grossly normal. NECK: JVD not raised; masses not palpable. HEART: First and second heart sounds are normal; no edema. LUNGS: Respiratory rate normal; clear to auscultation. ABDOMEN: Soft, nontender, liver spleen not palpable, no masses palpable. PSYCH: Alert and oriented x3; mood and affect jackie l. MUSCULOSKELETAL:No Clubbing/cyanosis;muscles-grossly intact. OA. Dressing over the left hip incision NEUROLOGICAL: Cranial nerves grossly intact; no facial asymmetry, power and sensation grossly intact. LYMPHATICS: No lymph nodes palpable in the axilla and neck INVESTIGATIONS, reviewed in the clinical context: July 12, 2024: White count 5.6 hemoglobin 14.5 platelets 192 sodium 139 potassium 4.9 BUN 13.5 creatinine 0.9 Assessment plan: -Left total hip arthroplasty IV cefazolin for infection prophylaxis. Aspirin for DVT prophylaxis. Pain controlled. -Depression Lexapro 5 mg nightly -Hypothyroid Synthroid 25 mcg a day -Essential hypertension Amlodipine 5 mg nightly -Chronic urinary stress incontinence -Primary osteoarthritis Pain medications as needed -Full code Care was discussed with patient. Questions answered. Thank you Dr. Schwarz - Past Medical History Past Medical History: Hypertension, Osteoarthritis (OA), Thyroid Disorder Additional Past Medical History / Comment(s): Incontinence of urine especially at night, "Circulation issues to legs.", "Once and awhile when I'm walking I get dizzy." Tinnitis. History of Any Multi-Drug Resistant Organisms: None Reported Past Surgical History: Joint Replacement, Orthopedic Surgery Additional Past Surgical History / Comment(s): Bilat knees replaced, [place]. shoulder surgery-Rt shoulder has screw in place r/t fall, Left MIRA. Past Anesthesia/Blood Transfusion Reactions: Motion Sickness Additional Past Anesthesia/Blood Transfusion Reaction / Comm: No hx of blood transfusion Past Psychological History: No Psychological Hx Reported Additional Psychological History / Comment(s): "I was getting grumpy so my dr put me on medication." Smoking Status: Never smoker Past Alcohol Use History: Occasional Past Drug Use History: None Reported - Past Family History Daughter(s) Family Medical History: Cancer Additional Family Medical History / Comment(s): breast cancer Mother Family Medical History: Cancer Additional Family Medical History / Comment(s): unknown cancer Medications and Allergies Home Medications Medication Instructions Recorded Confirmed Type Cyanocobalamin (Vitamin B-12) 1,000 mcg PO QAM 12/26/18 07/20/24 History [Vitamin B-12] Cholecalciferol [Vitamin D3 (25 25 mcg PO QAM 03/27/21 07/20/24 History Mcg = 1000 Iu)] Sennosides/Docusate Sodium [Senna 1 cap PO QAM 03/27/21 07/20/24 History Plus 8.6-50 mg Softgel] Acetaminophen [Tylenol Extra 500 mg PO Q8H PRN 03/11/24 07/20/24 History Strength] Calcium (Unknown Dose) 1 dose PO QAM 03/11/24 07/20/24 History Escitalopram [Lexapro] 5 mg PO HS 03/11/24 07/20/24 History Levothyroxine Sodium [Synthroid] 25 mcg PO QAM 03/11/24 07/20/24 History Meloxicam [Mobic] 7.5 mg PO BID PRN 03/11/24 07/20/24 History Turmeric (Unknown Dose) 1 dose PO QAM 03/11/24 07/20/24 History amLODIPine [Norvasc] 5 mg PO HS 03/11/24 07/20/24 History Aspirin 81 mg PO BID #60 tab 07/20/24 Rx Docusate [Colace] 100 mg PO BID #60 capsule 07/20/24 Rx HYDROcodone/APAP 5-325MG [Britton 5] 1 each PO Q6HR PRN #28 tab 07/20/24 Rx Omeprazole 20 mg PO DAILY #30 tab 07/20/24 Rx Ondansetron [Zofran] 4 mg PO Q6HR PRN #30 tab 07/20/24 Rx Allergies Allergy/AdvReac Type Severity Reaction Status Date / Time latex AdvReac Rash/Hives Verified 07/20/24 10:56 nickel AdvReac Rash/Hives Verified 07/20/24 10:56 silver sulfadiazine AdvReac Rash/Hives Verified 07/20/24 10:56 [From William] Bee stings Allergy Swelling Uncoded 07/20/24 10:56 Physical Exam Vitals: Vital Signs Temp Pulse Pulse Pulse Resp BP BP 07/20/24 17:56 49 L 112/64 07/20/24 17:32 55 L 112/64 07/20/24 17:15 79 116/74 07/20/24 17:01 53 L 110/66 07/20/24 16:32 97.4 F L 53 L 18 127/71 07/20/24 16:00 66 16 119/55 07/20/24 15:47 69 16 114/61 07/20/24 15:32 63 16 117/61 07/20/24 15:17 97 F L 97 14 147/74 07/20/24 11:53 58 L 18 143/69 07/20/24 11:13 98.8 F 64 18 157/77 Pulse Ox 07/20/24 17:56 95 07/20/24 17:32 90 L 07/20/24 17:15 100 07/20/24 17:01 90 L 07/20/24 16:32 94 L 07/20/24 16:00 97 07/20/24 15:47 100 07/20/24 15:32 100 07/20/24 15:17 100 07/20/24 11:53 100 07/20/24 11:13 99 Intake and Output 07/20/24 07/20/24 07/20/24 06:59 14:59 22:59 Intake Total 1350 0 Output Total 300 Balance 1050 0 Intake: IV 1350 0 Output: Estimated Blood Loss 300 Other: Weight 55.3 kg 55.3 kg
[2024-07-20] MEDS: ESCITALOPRAM 5 MG TAB PO SCH (22:59)
[2024-07-20] MEDS: ASPIRIN 81 MG PO SCH (22:59)
[2024-07-20] MEDS: amLODIPine 5 MG TAB PO SCH (23:00)
[2024-07-20] MEDS: SENNOSIDES-DOCUSATE SODIUM 1 EACH TAB PO SCH (23:00)
[2024-07-21] MEDS: LEVOTHYROXINE 25 MCG TAB PO SCH (05:55)
[2024-07-21] MEDS: CYANOCOBALAMIN 500 MCG TAB PO SCH (07:45)
[2024-07-21] MEDS: FAMOTIDINE 20 MG TAB PO SCH (07:45)
[2024-07-21] MEDS: CHOLECALCIFEROL 25 MCG (1000 IU) TABLET PO SCH (07:45)
--- NOTE | 2024-07-21 08:17 | P.PN ---
Subjective Progress Note Date: 07/21/24 Principal diagnosis: Left hip osteoarthritis status post total hip arthroplasty 07/20/2024 No acute events overnight. Patient is doing well this morning. The pain in their hip is moderate. They have walked to the bathroom with a walker and assistance. They deny chest pain or shortness of breath. Objective - Vital Signs Vital signs: Vital Signs Temp 97.7 F 07/21/24 02:15 Pulse 77 07/21/24 02:15 Resp 16 07/21/24 02:15 BP 110/64 07/21/24 02:15 Pulse Ox 94 L 07/21/24 02:15 FiO2 Intake & Output 07/20/24 07/21/24 07/21/24 18:59 06:59 18:59 Intake Total 1350 Output Total 300 300 Balance 1050 -300 Weight 55.3 kg Intake: IV 1350 Output: Urine 300 Estimated Blood Loss 300 - Exam Patient is resting comfortably in bed. No apparent distress. They are awake, alert and able to answer questions. On inspection the surgical hip dressing is intact, there is no drainage or strikethrough. The skin surrounding the dressing is free of erythema. There is mild swelling in the operative thigh. Operative femoral nerve function is intact. The patient is able to actively plantarflex and dorsiflex their operative ankle and toes. Their operative foot is pink and warm to touch. Assessment and Plan Assessment: Postop day #1 status post left total hip arthroplasty for left hip osteoarthritis Plan: Weight-bear as tolerated on the operative extremity. Use a walker to ambulate. Leave surgical dressing in place. Physical therapy for gait training and mobilization. Internal medicine for perioperative medical management. Disposition: Plan staying until tomorrow, pending PT evaluation rehab vs home.
[2024-07-21] MEDS ORDERED: NON FORMULARY DRUG (Sennosides/Docusate Sodium [Senna Plus 8.6-50 Mg Softgel] 1 EACH Capsu PO SCH (09:00)
[2024-07-21 09:06] LABS: Basophils # (A) 0.01 X 10*3/uL (0.00-0.10); Basophils % (A) 0.1 %; Eosinophils # (A) 0 X 10*3/uL (0.04-0.35); Eosinophils % (A) 0 %; HCT 35.1 % (37.2-46.3); HGB 11.7 g/dL (12.0-15.0); Lymphocytes # (A) 0.87 X 10*3/uL (0.90-5.00); Lymphocytes % (A) 8.2 %; MCHC 33.3 g/dL (32.0-37.0); MCV 95.9 FL (80.0-97.0); Mean Platelet Volume 11.5 FL (9.5-12.2); Monocytes # (A) 0.78 X 10*3/uL (0.20-1.00); Monocytes % (A) 7.4 %; NRBC Per 100 WBC 0 X 10*3/uL (0.00-0.01); Neutrophils # (A) 8.86 X 10*3/uL (1.80-7.70); Neutrophils % (A) 83.7 %; Platelet Count 198 X 10*3/uL (140-440); RBC 3.66 X 10*6/uL (4.10-5.20); WBC 10.58 X 10*3/uL (4.50-10.00)
[2024-07-21] MEDS: FERROUS SULFATE 325 MG TAB PO SCH (11:53)
--- NOTE | 2024-07-21 20:12 | P.PN ---
Progress Note - Text Progress Note Date: 07/21/24 - Chief Complaint Left hip surgery - History of Present Illness This is a pleasant 79-year-old patient follows with Dr. Guerrero. Chronic stable medical conditions include hypertension, hypothyroid, PAD, tinnitus, significant urinary incontinence, depression osteoarthritis. Does use a cane and a walker at home. at the bedside. Patient is undergone left total hip arthroplasty. Pain controlled. No nausea vomiting. No cardiac symptoms. July 21: Patient seen this afternoon. Up in a chair. Did get a bit dizzy. He tolerated diet. Active Medications Hydrocodone Bitart/Acetaminophen (Hydrocodone/Apap 5-325mg 1 Each Tab) 1 each PO Q6HR PRN PRN Reason: Pain Scale 1 to 5 Stop: 08/19/24 15:19 Last Admin: 07/21/24 18:40 Dose: 1 each Hydrocodone Bitart/Acetaminophen (Hydrocodone/Apap 10-325mg 1 Each Tab) 1 each PO Q6H PRN PRN Reason: Pain Scale 6 to 10 Stop: 08/19/24 15:19 Amlodipine Besylate (Amlodipine 5 Mg Tab) 5 [address] [facility] Last Admin: 07/20/24 23:00 Dose: 5 mg Aspirin (Aspirin 81 Mg) 81 mg PO BID [facility] Stop: 08/19/24 20:59 Last Admin: 07/21/24 07:45 Dose: 81 mg Cholecalciferol (Cholecalciferol 25 Mcg (1000 Iu) Tablet) 25 mcg PO QAM [facility] Last Admin: 07/21/24 07:45 Dose: 25 mcg Cyanocobalamin (Cyanocobalamin 500 Mcg Tab) 1,000 mcg PO QAM [facility] Last Admin: 07/21/24 07:45 Dose: 1,000 mcg Escitalopram Oxalate (Escitalopram 5 Mg Tab) 5 [address] PO [facility] Last Admin: 07/20/24 22:59 Dose: 5 mg Famotidine (Famotidine 20 Mg Tab) 20 mg PO DAILY [facility] Stop: 08/20/24 08:59 Last Admin: 07/21/24 07:45 Dose: 20 mg Ferrous Sulfate (Ferrous Sulfate 325 Mg Tab) 325 mg PO W/LUNCH [facility] Last Admin: 07/21/24 11:53 Dose: 325 mg Hydromorphone HCl (Hydromorphone 0.5 Mg/0.5 Ml Syringe) 0.125 mg IVP Q3HR PRN PRN Reason: Pain Scale 1 to 3 Stop: 08/19/24 15:19 Hydromorphone HCl (Hydromorphone 0.5 Mg/0.5 Ml Syringe) 0.5 mg IVP Q3HR PRN PRN Reason: Pain Scale 7 to 10 Stop: 08/19/24 15:19 Hydromorphone HCl (Hydromorphone 0.5 Mg/0.5 Ml Syringe) 0.25 mg IVP Q3HR PRN PRN Reason: Pain Scale 4 to 6 Stop: 08/19/24 15:19 Hydroxyzine Pamoate (Hydroxyzine Pamoate 25 Mg Cap) 25 mg PO Q4HR PRN PRN Reason: Nausea, Anxiety, Pain Control Stop: 08/19/24 15:19 Lactated Ringer's (Lactated Ringers) 1,000 mls @ 20 mls/hr IV .Q24H [facility] Stop: 08/19/24 10:50 Last Admin: 07/21/24 07:37 Dose: Not Given Sodium Chloride (Saline 0.9%) 1,000 mls @ 100 mls/hr IV .Q10H [facility] Stop: 08/19/24 15:29 Last Admin: 07/21/24 07:38 Dose: Not Given Levothyroxine Sodium (Levothyroxine 25 Mcg Tab) 25 mcg PO DAILY@0630 [facility] Last Admin: 07/21/24 05:55 Dose: 25 mcg Lidocaine HCl (Lidocaine 1% (10mg/Ml) For Iv Start) 0.1 ml INTRADERMA PER PROTOCOL PRN PRN Reason: IV Start Stop: 08/19/24 10:50 Magnesium Hydroxide (Magnesium Hydroxide 2,400 Mg/30 Ml Cup) 2,400 mg PO DAILY PRN PRN Reason: Constipation Stop: 08/19/24 15:19 Meloxicam (Meloxicam 7.5 Mg Tab) 7.5 mg PO BID PRN PRN Reason: Pain Naloxone HCl (Naloxone 0.4 Mg/Ml 1 Ml Vial) 0.2 mg IV Q2M PRN PRN Reason: Opioid Reversal Stop: 08/19/24 15:19 Ondansetron HCl (Ondansetron 4 Mg/2 Ml Vial) 4 mg IVP DAILY PRN PRN Reason: Nausea And Vomiting Stop: 08/19/24 15:19 Senna/Docusate Sodium (Sennosides-Docusate Sodium 1 Each Tab) 2 each PO HS BIBI Stop: 08/19/24 20:59 Last Admin: 07/20/24 23:00 Dose: 2 each Social history: Lives with her . No history of smoking alcohol. Physical examination: VITAL SIGNS: 98.3, 70, 16, 115 x 58, 96% room air GENERAL: Up in a recliner EYES: Pupils equal. Conjunctiva jackie l. HEENT: External appearance of nose and ears normal, oral cavity grossly normal. NECK: JVD not raised; masses not palpable. HEART: First and second heart sounds are normal; no edema. LUNGS: Respiratory rate normal; clear to auscultation. ABDOMEN: Soft, nontender, liver spleen not palpable, no masses palpable. PSYCH: Alert and oriented x3; mood and affect jackie l. MUSCULOSKELETAL:No Clubbing/cyanosis;muscles-grossly intact. OA. Dressing over the left hip incision INVESTIGATIONS, reviewed in the clinical context: July 21: White count 10.5 hemoglobin 11.7 platelets 198 July 12, 2024: White count 5.6 hemoglobin 14.5 platelets 192 sodium 139 potassium 4.9 BUN 13.5 creatinine 0.9 Assessment plan: -Left total hip arthroplasty IV cefazolin for infection prophylaxis. Aspirin for DVT prophylaxis. Pain controlled. -Depression Lexapro 5 mg nightly -Acute postprocedure blood loss anemia expected from surgery Ferrous sulfate added -Hypothyroid Synthroid 25 mcg a day -Essential hypertension Amlodipine 5 mg nightly -Chronic urinary stress incontinence -Primary osteoarthritis Pain medications as needed -Full code Discussed. Thank you Dr. Schwarz - Past Medical History Past Medical History: Hypertension, Osteoarthritis (OA), Thyroid Disorder Additional Past Medical History / Comment(s): Incontinence of urine especially at night, "Circulation issues to legs.", "Once and awhile when I'm walking I get dizzy." Tinnitis. History of Any Multi-Drug Resistant Organisms: None Reported Past Surgical History: Joint Replacement, Orthopedic Surgery Additional Past Surgical History / Comment(s): Bilat knees replaced, [place]. shoulder surgery-Rt shoulder has screw in place r/t fall, Left MIRA. Past Anesthesia/Blood Transfusion Reactions: Motion Sickness Additional Past Anesthesia/Blood Transfusion Reaction / Comm: No hx of blood transfusion Past Psychological History: No Psychological Hx Reported Additional Psychological History / Comment(s): "I was getting grumpy so my dr put me on medication." Smoking Status: Never smoker Past Alcohol Use History: Occasional Past Drug Use History: None Reported
--- NOTE | 2024-07-22 10:55 | P.PN ---
Subjective Progress Note Date: 07/22/24 Principal diagnosis: Left hip osteoarthritis status post total hip arthroplasty 07/20/2024 No acute events overnight. Patient is doing well this morning. The pain in their hip is mild. They have walked to the bathroom with a walker and assistance. They deny chest pain or shortness of breath. They worked with PT today and rehab was recommended unless she is able to achieve PT goals by d/c. Objective - Vital Signs Vital signs: Vital Signs Temp 98.2 F 07/22/24 07:06 Pulse 74 07/22/24 07:06 Resp 20 07/22/24 07:06 BP 123/70 07/22/24 07:06 Pulse Ox 96 07/22/24 07:06 FiO2 Intake & Output 07/21/24 07/22/24 07/22/24 18:59 06:59 18:59 Intake Total 500 Output Total 1200 Balance 500 -1200 Intake: Oral 500 Output: Urine 1200 Other: # Voids 1 1 - Exam Patient is resting comfortably in chair. No apparent distress. They are awake, alert and able to answer questions. On inspection the surgical hip dressing is intact, there is no drainage or strikethrough. The skin surrounding the dressing is free of erythema. There is mild swelling in the operative thigh. Operative femoral nerve function is intact. The patient is able to actively plantarflex and dorsiflex their operative ankle and toes. - Labs CBC & Chem 7: 07/21/24 04:56 Assessment and Plan Assessment: Postop day #2 status post left total hip arthroplasty for left hip osteoarthritis Plan: Weight-bear as tolerated on the operative extremity. Use a walker to ambulate. Leave surgical dressing in place. Physical therapy for gait training and mobilization. Internal medicine for perioperative medical management. Disposition: Plan staying until tomorrow, if she can reach PT goal may go home tomorrow or stay until rehab.
--- NOTE | 2024-07-22 14:19 | P.PN ---
Progress Note - Text Progress Note Date: 07/22/24 - Chief Complaint Left hip surgery - History of Present Illness This is a pleasant 79-year-old patient follows with Dr. Guerrero. Chronic stable medical conditions include hypertension, hypothyroid, PAD, tinnitus, significant urinary incontinence, depression osteoarthritis. Does use a cane and a walker at home. at the bedside. Patient is undergone left total hip arthroplasty. Pain controlled. No nausea vomiting. No cardiac symptoms. July 21: Patient seen this afternoon. Up in a chair. Did get a bit dizzy. He tolerated diet. July 22: Up in a recliner. Did walk with therapy. Not dizzy. Some pain present. Probably discharge tomorrow rehab versus home. Active Medications Hydrocodone Bitart/Acetaminophen (Hydrocodone/Apap 5-325mg 1 Each Tab) 1 each PO Q6HR PRN PRN Reason: Pain Scale 1 to 5 Stop: 08/19/24 15:19 Last Admin: 07/22/24 11:38 Dose: 1 each Hydrocodone Bitart/Acetaminophen (Hydrocodone/Apap 10-325mg 1 Each Tab) 1 each PO Q6H PRN PRN Reason: Pain Scale 6 to 10 Stop: 08/19/24 15:19 Amlodipine Besylate (Amlodipine 5 Mg Tab) 5 mg PO HS [facility] Last Admin: 07/21/24 22:51 Dose: 5 mg Aspirin (Aspirin 81 Mg) 81 mg PO BID [facility] Stop: 08/19/24 20:59 Last Admin: 07/22/24 07:46 Dose: 81 mg Cholecalciferol (Cholecalciferol 25 Mcg (1000 Iu) Tablet) 25 mcg PO QAM [facility] Last Admin: 07/22/24 07:47 Dose: 25 mcg Cyanocobalamin (Cyanocobalamin 500 Mcg Tab) 1,000 mcg PO QAM [facility] Last Admin: 07/22/24 07:46 Dose: 1,000 mcg Escitalopram Oxalate (Escitalopram 5 Mg Tab) 5 mg PO HS [facility] Last Admin: 07/21/24 22:51 Dose: 5 mg Famotidine (Famotidine 20 Mg Tab) 20 mg PO DAILY [facility] Stop: 08/20/24 08:59 Last Admin: 07/22/24 07:46 Dose: 20 mg Ferrous Sulfate (Ferrous Sulfate 325 Mg Tab) 325 mg PO W/LUNCH [facility] Last Admin: 07/22/24 11:37 Dose: 325 mg Hydromorphone HCl (Hydromorphone 0.5 Mg/0.5 Ml Syringe) 0.125 mg IVP Q3HR PRN PRN Reason: Pain Scale 1 to 3 Stop: 08/19/24 15:19 Hydromorphone HCl (Hydromorphone 0.5 Mg/0.5 Ml Syringe) 0.5 mg IVP Q3HR PRN PRN Reason: Pain Scale 7 to 10 Stop: 08/19/24 15:19 Hydromorphone HCl (Hydromorphone 0.5 Mg/0.5 Ml Syringe) 0.25 mg IVP Q3HR PRN PRN Reason: Pain Scale 4 to 6 Stop: 08/19/24 15:19 Hydroxyzine Pamoate (Hydroxyzine Pamoate 25 Mg Cap) 25 mg PO Q4HR PRN PRN Reason: Nausea, Anxiety, Pain Control Stop: 08/19/24 15:19 Lactated Ringer's (Lactated Ringers) 1,000 mls @ 20 mls/hr IV .Q24H [facility] Stop: 08/19/24 10:50 Last Admin: 07/22/24 07:35 Dose: Not Given Sodium Chloride (Saline 0.9%) 1,000 mls @ 100 mls/hr IV .Q10H [facility] Stop: 08/19/24 15:29 Last Admin: 07/22/24 07:47 Dose: Not Given Levothyroxine Sodium (Levothyroxine 25 Mcg Tab) 25 mcg PO DAILY@0630 BIBI Last Admin: 07/22/24 06:05 Dose: 25 mcg Lidocaine HCl (Lidocaine 1% (10mg/Ml) For Iv Start) 0.1 ml INTRADERMA PER PROTOCOL PRN PRN Reason: IV Start Stop: 08/19/24 10:50 Magnesium Hydroxide (Magnesium Hydroxide 2,400 Mg/30 Ml Cup) 2,400 mg PO DAILY PRN PRN Reason: Constipation Stop: 08/19/24 15:19 Meloxicam (Meloxicam 7.5 Mg Tab) 7.5 mg PO BID PRN PRN Reason: Pain Naloxone HCl (Naloxone 0.4 Mg/Ml 1 Ml Vial) 0.2 mg IV Q2M PRN PRN Reason: Opioid Reversal Stop: 08/19/24 15:19 Ondansetron HCl (Ondansetron 4 Mg/2 Ml Vial) 4 mg IVP DAILY PRN PRN Reason: Nausea And Vomiting Stop: 08/19/24 15:19 Senna/Docusate Sodium (Sennosides-Docusate Sodium 1 Each Tab) 2 each PO HS BIBI Stop: 08/19/24 20:59 Last Admin: 07/21/24 22:51 Dose: 2 each Social history: Lives with her . No history of smoking alcohol. Physical examination: VITAL SIGNS: 98.2, 74, 20, 123 x 70, 96% room air GENERAL: Up in a recliner EYES: Pupils equal. Conjunctiva jackie l. HEENT: External appearance of nose and ears normal, oral cavity grossly normal. NECK: JVD not raised; masses not palpable. HEART: First and second heart sounds are normal; no edema. LUNGS: Respiratory rate normal; clear to auscultation. ABDOMEN: Soft, nontender, liver spleen not palpable, no masses palpable. PSYCH: Alert and oriented x3; mood and affect jackie l. MUSCULOSKELETAL:No Clubbing/cyanosis;muscles-grossly intact. OA. Dressing over the left hip incision INVESTIGATIONS, reviewed in the clinical context: July 21: White count 10.5 hemoglobin 11.7 platelets 198 July 12, 2024: White count 5.6 hemoglobin 14.5 platelets 192 sodium 139 potassium 4.9 BUN 13.5 creatinine 0.9 Assessment plan: -Left total hip arthroplasty IV cefazolin for infection prophylaxis. Aspirin for DVT prophylaxis. Pain controlled. -Depression Lexapro 5 mg nightly -Acute postprocedure blood loss anemia expected from surgery Ferrous sulfate added -Hypothyroid Synthroid 25 mcg a day -Essential hypertension Amlodipine 5 mg nightly -Chronic urinary stress incontinence -Primary osteoarthritis Pain medications as needed -Full code Discussed with patient. Stable. Follow-up with PCP upon discharge. Thank you Dr. Schwarz - Past Medical History Past Medical History: Hypertension, Osteoarthritis (OA), Thyroid Disorder Additional Past Medical History / Comment(s): Incontinence of urine especially at night, "Circulation issues to legs.", "Once and awhile when I'm walking I get dizzy." Tinnitis. History of Any Multi-Drug Resistant Organisms: None Reported Past Surgical History: Joint Replacement, Orthopedic Surgery Additional Past Surgical History / Comment(s): Bilat knees replaced, [place]. shoulder surgery-Rt shoulder has screw in place r/t fall, Left MIRA. Past Anesthesia/Blood Transfusion Reactions: Motion Sickness Additional Past Anesthesia/Blood Transfusion Reaction / Comm: No hx of blood transfusion Past Psychological History: No Psychological Hx Reported Additional Psychological History / Comment(s): "I was getting grumpy so my dr put me on medication." Smoking Status: Never smoker Past Alcohol Use History: Occasional Past Drug Use History: None Reported
[2024-07-23] MEDS: HYDROcodone/APAP 10-325MG 1 EACH TAB PO PRN (00:49)
--- NOTE | 2024-07-23 07:54 | P.PN ---
Subjective Progress Note Date: 07/23/24 Patient is doing relatively well this morning. She reports pain in her hip yesterday. She has some itching over her dressing. She denies chest pain or shortness of breath. Objective - Vital Signs Vital signs: Vital Signs Temp 97.9 F 07/23/24 07:28 Pulse 78 07/23/24 07:28 Resp 16 07/23/24 07:28 BP 149/81 07/23/24 07:28 Pulse Ox 94 L 07/23/24 07:28 FiO2 Intake & Output 07/22/24 07/23/24 07/23/24 18:59 06:59 18:59 Other: Voiding Method Toilet # Voids 1 - Exam The patient is resting comfortably in their bed. A focused examination of the operative hip was performed. On inspection there is a clean-appearing dressing over the anterior hip with no drainage or strike through. There is mild swelling throughout the thigh. Femoral nerve function is intact. The patient is able to actively dorsiflex and plantarflex their ankle and toes. Sensation is intact to light touch throughout the foot. The foot is warm and well-perfused with brisk capillary refill. - Labs CBC & Chem 7: 07/21/24 04:56 Assessment and Plan Assessment: Postop day #3 s/p Left DA MIRA Plan: 1. Weight bear as tolerated on the operative extremity, up with assistance and a walker 2. DVT prophylaxis with aspirin 81 mg BID 3. 2 doses of post operative antibiotics 4. Leave surgical dressing in place 5. Internal medicine for mendez-operative medical management 6. Physical therapy for gait training and mobilization 7. Dispo: PT recommending [facility]. Likely will d/c Thursday.
[2024-07-23 09:39] LABS: HCT 33.2 % (37.2-46.3); HGB 11.1 g/dL (12.0-15.0); MCH 31.4 pg (27.0-32.0); MCHC 33.4 g/dL (32.0-37.0); MCV 94.1 FL (80.0-97.0); Mean Platelet Volume 11.2 FL (9.5-12.2); NRBC Per 100 WBC 0 X 10*3/uL (0.00-0.01); Platelet Count 170 X 10*3/uL (140-440); RBC 3.53 X 10*6/uL (4.10-5.20)
[2024-07-23 09:40] LABS: Basophils # (A) 0.06 X 10*3/uL (0.00-0.10); Eosinophils % (A) 1.6 %; Lymphocytes # (A) 1.87 X 10*3/uL (0.90-5.00); Lymphocytes % (A) 29.7 %; Monocytes # (A) 0.75 X 10*3/uL (0.20-1.00); Monocytes % (A) 11.9 %; Neutrophils % (A) 55.5 %
[2024-07-23] MEDS: polyethylene glycoL 3350 17 GM POWD.PACK PO SCH (13:54)
--- NOTE | 2024-07-23 17:20 | P.PN ---
Subjective Progress Note Date: 07/23/24 Interval History: This is a pleasant 79-year-old patient follows with Dr. Guerrero. Chronic stable medical conditions include hypertension, hypothyroid, PAD, tinnitus, significant urinary incontinence, depression osteoarthritis. Does use a cane and a walker at home. at the bedside. Patient is undergone left total hip arthroplasty. Pain controlled. No nausea vomiting. No cardiac symptoms. July 21: Patient seen this afternoon. Up in a chair. Did get a bit dizzy. He tolerated diet. July 22: Up in a recliner. Did walk with therapy. Not dizzy. Some pain present. 07/23/2024--patient was seen and examined today. Complaining of left hip pain, patient ambulated earlier today, pain got worsened. Improving with rest. Assessment and plan: -Left total hip arthroplasty IV cefazolin for infection prophylaxis. Aspirin for DVT prophylaxis per orth opedics. Pain controlled. -Depression Lexapro 5 mg nightly -Acute postprocedure blood loss anemia expected from surgery Ferrous sulfate added -Hypothyroid Synthroid 25 mcg a day -Essential hypertension Amlodipine 5 mg nightly -Chronic urinary stress incontinence -Primary osteoarthritis Pain medications as needed Disposition: PT/OT evaluation -Full code DVT prophylaxis: Per orthopedics PHYSICAL EXAMINATION: GENERAL: The patient is A&O x3, NAD HEENT: EOMI, Sclerae anicteric, Moist Mucous membranes Neck: Supple, Non tender, No JVD PULMONARY: Equal breath souds B/L, No wheezing, No crackles. CARDIOVASCULAR: S1, S2 present. No murmurs, rubs, or gallops. ABDOMEN: Soft, nontender, nondistended, normoactive bowel sounds. No guarding or rebound tenderness. MUSCULOSKELETAL: Left hipdressing intact. Mild tenderness. No edema, No cyanosis. No clubbing. Normal ROM. Intact peripheral pulses. EXTREMITIES: No cyanosis, clubbing, or pedal edema. NEUROLOGICAL: CN 2-12 grossly intact. No FND Skin: No Rash REVIEW OF SYSTEMS: CONSTITUTIONAL: No fever or chills. CARDIOVASCULAR: No chest pain, palpitations or syncope. PULMONARY: No shortness of breath, no cough, sore throat. GASTROINTESTINAL: No nausea, vomiting, diarrhea, abdominal pain. : No Dysuria, urgency, frequency. Extremities: No edema. Left hip pain NEUROLOGICAL: No headaches, no weakness, or numbness Dictation was produced using [employer] dictation software. please excuse any grammatical, word or spelling errors. Objective - Vital Signs Vital signs: Vital Signs Temp 98.1 F 07/23/24 13:46 Pulse 62 07/23/24 13:46 Resp 16 07/23/24 13:46 BP 104/64 07/23/24 13:46 Pulse Ox 95 07/23/24 13:46 FiO2 Intake & Output 07/22/24 07/23/24 07/23/24 18:59 06:59 18:59 Other: Voiding Method Toilet Toilet # Voids 1 - Labs CBC & Chem 7: 07/23/24 04:42 Labs: Abnormal Lab Results - Last 24 Hours (Table) 07/23/24 Range/Units 04:42 RBC 3.53 L (4.10-5.20) X 10*6/uL Hgb 11.1 L (12.0-15.0) g/dL Hct 33.2 L (37.2-46.3) %
--- NOTE | 2024-07-24 08:03 | P.PN ---
Subjective The patient is doing better this morning. She still has some pain in her hip but it is improving. She says the preoperative pain and popping she was having significant improvement. She does report an episode yesterday where she was operated arranging her bag and her hip became increasingly painful. She thinks she may have overdone it. She was able to walk back to the bed afterwards. She is hoping she can discharge home rather than going to rehab for a long term. Objective - Vital Signs Vital signs: Vital Signs Temp 98.2 F 07/24/24 07:22 Pulse 80 07/24/24 07:22 Resp 16 07/24/24 07:22 BP 115/72 07/24/24 07:22 Pulse Ox 97 07/24/24 07:22 FiO2 Intake & Output 07/23/24 07/24/24 07/24/24 18:59 06:59 18:59 Other: Voiding Method Toilet Toilet # Voids 5 3 # Bowel Movements 1 - Exam Patient is resting comfortably in bed. She is alert and able to answer questions. Her thigh is soft and compressible. Her dressing is intact. Femoral nerve function is intact. She can actively plantarflex and dorsiflex her ankle and her toes. - Labs CBC & Chem 7: 07/23/24 04:42 Labs: Abnormal Lab Results - Last 24 Hours (Table) 07/23/24 Range/Units 04:42 RBC 3.53 L (4.10-5.20) X 10*6/uL Hgb 11.1 L (12.0-15.0) g/dL Hct 33.2 L (37.2-46.3) % Assessment and Plan Assessment: Postoperative day #4 status post direct anterior total hip arthroplasty Plan: The patient is slowly improving. Physical therapy has recommended subacute rehab. The patient would like to go home. We will plan on keeping her until tomorrow. I would like to have therapy reassess her at that time. If she is improved to the point that physical therapy thinks she is safe to discharge home I'm okay with that. I still think she may benefit from subacute rehab however. Plan on discharge home versus subacute rehab tomorrow. Continue treatment as outlined previously.
--- NOTE | 2024-07-24 15:07 | P.PN ---
Subjective Progress Note Date: 07/24/24 Interval History: This is a pleasant 79-year-old patient follows with Dr. Guerrero. Chronic stable medical conditions include hypertension, hypothyroid, PAD, tinnitus, significant urinary incontinence, depression osteoarthritis. Does use a cane and a walker at home. at the bedside. Patient is undergone left total hip arthroplasty. Pain controlled. No nausea vomiting. No cardiac symptoms. July 21: Patient seen this afternoon. Up in a chair. Did get a bit dizzy. He tolerated diet. July 22: Up in a recliner. Did walk with therapy. Not dizzy. Some pain present. 07/23/2024--patient was seen and examined today. Complaining of left hip pain, patient ambulated earlier today, pain got worsened. Improving with rest. 07/24/2024--patient was seen and examined today. Feeling better today. Left hip pain is better today. Vital stable, remained afebrile. No new labs. Awaiting PT/OT evaluation, anticipate subacute rehab. Assessment and plan: -Left total hip arthroplasty IV cefazolin for infection prophylaxis. Aspirin for DVT prophylaxis per orthopedics. Pain controlled. -Depression Lexapro 5 mg nightly -Acute postprocedure blood loss anemia expected from surgery Ferrous sulfate added -Hypothyroid Synthroid 25 mcg a day -Essential hypertension Amlodipine 5 mg nightly -Chronic urinary stress incontinence -Primary osteoarthritis Pain medications as needed Disposition: PT/OT evaluation -Full code DVT prophylaxis: Per orthopedics PHYSICAL EXAMINATION: GENERAL: The patient is A&O x3, NAD HEENT: EOMI, Sclerae anicteric, Moist Mucous membranes Neck: Supple, Non tender, No JVD PULMONARY: Equal breath souds B/L, No wheezing, No crackles. CARDIOVASCULAR: S1, S2 present. No murmurs, rubs, or gallops. ABDOMEN: Soft, nontender, nondistended, normoactive bowel sounds. No guarding or rebound tenderness. MUSCULOSKELETAL: Left hipdressing intact. Mild tenderness. No edema, No cyanosis. No clubbing. Normal ROM. Intact peripheral pulses. EXTREMITIES: No cyanosis, clubbing, or pedal edema. NEUROLOGICAL: CN 2-12 grossly intact. No FND Skin: No Rash REVIEW OF SYSTEMS: CONSTITUTIONAL: No fever or chills. CARDIOVASCULAR: No chest pain, palpitations or syncope. PULMONARY: No shortness of breath, no cough, sore throat. GASTROINTESTINAL: No nausea, vomiting, diarrhea, abdominal pain. : No Dysuria, urgency, frequency. Extremities: No edema. Left hip pain NEUROLOGICAL: No headaches, no weakness, or numbness Dictation was produced using [employer] dictation software. please excuse any grammatical, word or spelling errors. Objective - Vital Signs Vital signs: Vital Signs Temp 97.9 F 07/24/24 13:31 Pulse 68 07/24/24 13:31 Resp 16 07/24/24 13:31 BP 122/62 07/24/24 13:31 Pulse Ox 98 07/24/24 13:31 FiO2 Intake & Output 07/23/24 07/24/24 07/24/24 18:59 06:59 18:59 Other: Voiding Method Toilet Toilet # Voids 5 3 2 # Bowel Movements 1 - Labs CBC & Chem 7: 07/23/24 04:42
[2024-07-24] MEDS: BENZOCAINE 20% HEMORRHOIDAL OINT 28GM RECTAL PRN (15:57)
[2024-07-24] MEDS: bisacodyL 10 MG SUPP RECTAL STA (15:57)
--- NOTE | 2024-07-25 08:03 | P.PN ---
Subjective Progress Note Date: 07/25/24 Principal diagnosis: status post left total hip arthroplasty 07/20/2024 for left hip osteoarthritis The patient continues to do better this morning. She still has some pain in her operative hip but it is improving. She is hoping she can discharge home rather than going to rehab for a mcc. Objective - Vital Signs Vital signs: Vital Signs Temp 99.2 F 07/25/24 02:00 Pulse 96 07/25/24 02:00 Resp 16 07/24/24 13:31 BP 103/61 07/25/24 02:00 Pulse Ox 97 07/25/24 02:00 FiO2 Intake & Output 07/24/24 07/25/24 07/25/24 18:59 06:59 18:59 Other: Voiding Method Toilet # Voids 4 1 # Bowel Movements 1 1 - Exam Patient is resting comfortably in a chair. She is alert and able to answer questions. Her thigh is soft and compressible. Her dressing is intact. There may be some signs of early blistering lateral to dressing. Femoral nerve function is intact. She can actively plantarflex and dorsiflex her ankle and her toes. - Labs CBC & Chem 7: 07/23/24 04:42 Assessment and Plan Assessment: Postoperative day #5 status post left direct anterior total hip arthroplasty Plan: The patient is improving. Physical therapy has recommended subacute rehab. The patient would like to go home. We will have therapy reassess her today. If she is improved to the point that physical therapy thinks she is safe to discharge home I'm okay with that. I still think she may benefit from subacute rehab however. Plan on discharge home versus subacute rehab later today. Leave dressing. Continue treatment as outlined previously.
[2024-07-25] MEDS: LORATADINE 10 MG TAB PO PRN (08:50)
[2024-07-25 09:50] LABS: Basophils # (A) 0.05 X 10*3/uL (0.00-0.10); Basophils % (A) 0.5 %; Eosinophils # (A) 0.07 X 10*3/uL (0.04-0.35); Eosinophils % (A) 0.7 %; HCT 33.8 % (37.2-46.3); HGB 11.2 g/dL (12.0-15.0); Lymphocytes # (A) 1.33 X 10*3/uL (0.90-5.00); Lymphocytes % (A) 12.8 %; MCH 31.6 pg (27.0-32.0); MCHC 33.1 g/dL (32.0-37.0); MCV 95.5 FL (80.0-97.0); Mean Platelet Volume 11.3 FL (9.5-12.2); Monocytes # (A) 0.83 X 10*3/uL (0.20-1.00); NRBC Per 100 WBC 0 X 10*3/uL (0.00-0.01); Neutrophils % (A) 77.6 %; Platelet Count 236 X 10*3/uL (140-440); RBC 3.54 X 10*6/uL (4.10-5.20); RDW 11.9 % (11.5-14.5); WBC 10.42 X 10*3/uL (4.50-10.00)
--- NOTE | 2024-07-25 11:25 | P.DS ---
Providers Date of admission: 07/21/24 10:01 Attending physician: Heath Schwarz Consults: 07/20/24 15:20 Consult Physician Routine Consulting Provider: Sher Huggins Consult Reason/Comments: post op medical management Do you want consulting provider notified?: Yes Primary care physician: [facility] Course: The patient is a very pleasant 79 year old female who was admitted on WED 07/20 for an elective left total hip replacement. Following an uncomplicated surgery she was transferred to the Ortho floor. She had 2 doses of IV antibiotics. She was started on aspirin 81 mg twice a day for DVT prophylaxis. IM managed her medical issues. She had pain and difficulty ambulating the first 2 days after surgery. She worked with PT who recommended [facility]/Rehab. She was ultimately cleared for d/c to [facility] on 07/25/2024. Patient Condition at Discharge: Good Plan - Discharge Summary Discharge Rx Participant: No New Discharge Prescriptions: New HYDROcodone/APAP 5-325MG [[place] 5] 1 each PO Q6HR PRN #28 tab PRN Reason: Pain Ondansetron [Zofran] 4 mg PO Q6HR PRN #30 tab PRN Reason: Nausea Aspirin 81 mg PO BID #60 tab Docusate [Colace] 100 mg PO BID #60 capsule Omeprazole 20 mg PO DAILY #30 tab Continue Cyanocobalamin (Vitamin B-12) [Vitamin B-12] 1,000 mcg PO QAM Sennosides/Docusate Sodium [Senna Plus 8.6-50 mg Softgel] 1 cap PO QAM amLODIPine [Norvasc] 5 mg PO HS Turmeric (Unknown Dose) 1 dose PO QAM Meloxicam [Mobic] 7.5 mg PO BID PRN PRN Reason: Pain Levothyroxine Sodium [Synthroid] 25 mcg PO QAM Escitalopram [Lexapro] 5 mg PO HS Calcium (Unknown Dose) 1 dose PO QAM Cholecalciferol [Vitamin D3 (25 Mcg = 1000 Iu)] 25 mcg PO QAM Acetaminophen [Tylenol Extra Strength] 500 mg PO Q8H PRN PRN Reason: Pain Discharge Medication List Cyanocobalamin (Vitamin B-12) [Vitamin B-12] 1,000 mcg PO QAM 12/26/18 [History] Cholecalciferol [Vitamin D3 (25 Mcg = 1000 Iu)] 25 mcg PO QAM 03/27/21 [History] Sennosides/Docusate Sodium [Senna Plus 8.6-50 mg Softgel] 1 cap PO QAM 03/27/21 [History] Acetaminophen [Tylenol Extra Strength] 500 mg PO Q8H PRN 03/11/24 [History] Calcium (Unknown Dose) 1 dose PO QAM 03/11/24 [History] Escitalopram [Lexapro] 5 mg PO HS 03/11/24 [History] Levothyroxine Sodium [Synthroid] 25 mcg PO QAM 03/11/24 [History] Meloxicam [Mobic] 7.5 mg PO BID PRN 03/11/24 [History] Turmeric (Unknown Dose) 1 dose PO QAM 03/11/24 [History] amLODIPine [Norvasc] 5 mg PO HS 03/11/24 [History] Aspirin 81 mg PO BID #60 tab 07/20/24 [Rx] Docusate [Colace] 100 mg PO BID #60 capsule 07/20/24 [Rx] HYDROcodone/APAP 5-325MG [[place] 5] 1 each PO Q6HR PRN #28 tab 07/20/24 [Rx] Omeprazole 20 mg PO DAILY #30 tab 07/20/24 [Rx] Ondansetron [Zofran] 4 mg PO Q6HR PRN #30 tab 07/20/24 [Rx] Follow up Appointment(s)/Referral(s): Heath Schwarz MD [Medical Doctor] - 08/04/24 10:30 am (With Abdullahi) Activity/Diet/Wound Care/Special Instructions: 1. Weight-bear as tolerated on your operative extremity unless instructed otherwise. Use a walker or other assistive device to ambulate. 2. Leave surgical dressing in place. If your dressing becomes saturated with blood, there is drainage, or the dressing becomes loose please contact the office. 3. It is okay to shower with your surgical dressing, but do not submerge in water (no hot tubs, bath's, swimming etc.) 4. Take your blood clot prevention medication as prescribed (aspirin, Eliquis, Xarelto, and Plavix are commonly prescribed medications for blood clot prevention) 5. While taking [place] or Percocet for pain take a stool softener (Ex: Colace) and drink lots of water. 6. Keep all follow-up appointments as scheduled. You will usually be seen in 1-2 weeks following surgery. 7. Please contact the office with any questions or concerns [phone]
--- NOTE | 2024-07-25 14:34 | P.PN ---
Subjective Progress Note Date: 07/25/24 Interval History: This is a pleasant 79-year-old patient follows with Dr. Guerrero. Chronic stable medical conditions include hypertension, hypothyroid, PAD, tinnitus, significant urinary incontinence, depression osteoarthritis. Does use a cane and a walker at home. at the bedside. Patient is undergone left total hip arthroplasty. Pain controlled. No nausea vomiting. No cardiac symptoms. July 21: Patient seen this afternoon. Up in a chair. Did get a bit dizzy. He tolerated diet. July 22: Up in a recliner. Did walk with therapy. Not dizzy. Some pain present. 07/23/2024--patient was seen and examined today. Complaining of left hip pain, patient ambulated earlier today, pain got worsened. Improving with rest. 07/24/2024--patient was seen and examined today. Feeling better today. Left hip pain is better today. Vital stable, remained afebrile. No new labs. Awaiting PT/OT evaluation, anticipate subacute rehab. 07/25/2024 Patient is evaluated in follow-up on the medical floor. She is evaluated up ambulating with physical therapy. Patient was doing well with minimal assistance however has concerns with getting into the car for transportation as well as getting to a rehabilitation center if she goes home. Patient is still deciding between subacute rehab. She has no acute complaints. She does state that her left hip is burning after she has been up ambulating working with physical therapy. White blood Cell count today is 10.42. Hemodynamically she is stable and medically she has been cleared for discharge. Review of Systems Constitutional: Denied any fatigue denied any fever. Cardio vascular: denied any chest pain, palpitations Gastrointestinal: denied any nausea, vomiting, diarrhea Pulmonary: Denied any shortness of breath cough Neurologic denied any new focal deficits All inpatient medications were reviewed and appropriate changes in these medications as dictated in the interval history and assessment and plan. PHYSICAL EXAMINATION: GENERAL: The patient is alert and oriented x3, not in any acute distress. Well developed, well nourished. HEENT: Pupils are round and equally reacting to light. EOMI. No scleral icterus. No conjunctival pallor. Normocephalic, atraumatic. No pharyngeal erythema. No thyromegaly. CARDIOVASCULAR: S1 and S2 present. No murmurs, rubs, or gallops. PULMONARY: Chest is clear to auscultation, no wheezing or crackles. ABDOMEN: Soft, nontender, nondistended, normoactive bowel sounds. No palpable organomegaly. MUSCULOSKELETAL: No joint swelling or deformity. EXTREMITIES: No cyanosis, clubbing, or pedal edema. NEUROLOGICAL: Gross neurological examination did not reveal any focal deficits. SKIN: No rashes. Hip dressing intact on the left. Assessment and plan: -Left total hip arthroplasty IV cefazolin for infection prophylaxis. Aspirin for DVT prophylaxis per orthopedics. Pain controlled. -Depression Lexapro 5 mg nightly -Acute postprocedure blood loss anemia expected from surgery Ferrous sulfate added -Hypothyroid Synthroid 25 mcg a day -Essential hypertension Amlodipine 5 mg nightly -Chronic urinary stress incontinence -Primary osteoarthritis Pain medications as needed Disposition: PT/OT evaluation -Full code DVT prophylaxis: Per orthopedics Patient medically is stable for discharge home. Patient can continue all same home medications. Patient now would like to be on [facility] for rehab after reevaluation by physical therapy. Patient is willing to pay for the wheelchair van case management is following and pain will likely be discharged today or tomorrow. The impression and plan of care has been dictated by Gela Nicolas Nurse Practitioner as directed. Dr. Carmen MD I have performed a history and physical examination and medical decision making of this patient, discussed the same with the dictator, and agree with the dictators assessment and plan as written, documented as a scribe. Based on total visit time, I have performed more than 50% of this visit. Objective - Vital Signs Vital signs: Vital Signs Temp 98.6 F 07/25/24 07:12 Pulse 96 07/25/24 08:00 Resp 16 07/25/24 08:00 BP 110/65 07/25/24 07:12 Pulse Ox 99 07/25/24 07:12 FiO2 Intake & Output 07/24/24 07/25/24 07/25/24 18:59 06:59 18:59 Other: Voiding Method Toilet Toilet # Voids 4 1 # Bowel Movements 1 1 - Labs CBC & Chem 7: 07/25/24 04:58 Labs: Abnormal Lab Results - Last 24 Hours (Table) 07/25/24 Range/Units 04:58 WBC 10.42 H (4.50-10.00) X 10*3/uL RBC 3.54 L (4.10-5.20) X 10*6/uL Hgb 11.2 L (12.0-15.0) g/dL Hct 33.8 L (37.2-46.3) % Neutrophils # 8.10 H (1.80-7.70) X 10*3/uL Assessment and Plan Time with Patient: Less than 30
[2024-07-25] MEDS: DICLOFENAC SODIUM GEL 50 GM TUBE TOPICAL PRN (14:44)
[2024-07-25 15:25] VITALS: BP 107/69; PULSE 60; RESP 17; TEMP 98.4
== END 2024-07-25 15:40 | disposition home health service (06) | DRG 470 ==
LOC: OR 10:29 → 4SSUR 15:09 → OR 07-21 10:01
PROVIDERS: ADMIT Orthopaedic Surgery; ATTEND Orthopaedic Surgery
PROC: 3E0T3BZ Introduction of Anesthetic Agent into Peripheral Nerves and Plexi, Percutaneous Approach (ICD-10-PCS; 2024-07-20)
PROC: 0SRB0J9 Replacement of Left Hip Joint with Synthetic Substitute, Cemented, Open Approach (ICD-10-PCS; principal; 2024-07-20 12:30)
DX: M16.12 Unilateral primary osteoarthritis, left hip (principal); D62 Acute posthemorrhagic anemia; I10 Essential (primary) hypertension; E03.9 Hypothyroidism, unspecified; Z79.890 Hormone replacement therapy; F32.A Depression, unspecified; H93.19 Tinnitus, unspecified ear; N39.3 Stress incontinence (female) (male); Z79.1 Long term (current) use of non-steroidal anti-inflammatories (NSAID); Z79.82 Long term (current) use of aspirin; Z79.899 Other long term (current) drug therapy; Z80.3 Family history of malignant neoplasm of breast
CPT/HCPCS: 64447; 73502; 85025

== ENCOUNTER 2025-03-29 06:08 | Day surgery (SDC) | payer MEDICARE, BC ==
[~2025-03-29 06:08] MED LIST changes: +TETRACAINE 0.5% OPHTH (PF) DROPS 4 ML BTL OP PRN; -TRANEXAMIC 1,000 MG/100ML-NACL 1,000 MG in SALINE 1 100ML.BAG IV PRN; -TRANEXAMIC 1,000 MG/100ML-NACL 1,000 MG in SALINE 1 100ML.BAG IVPB PRN
[2025-03-29] MEDS: IV FLUID CONTINUATION 1,000 ML IV ONE (06:43)
[2025-03-29] MEDS: CYCLOPENTOLATE 1% OPHTH SOLN 2 ML BTL OP PRN (06:49)
[2025-03-29] MEDS: PHENYLEPHRINE 2.5% OPHTH DRP 2ML OP PRN (06:52)
[2025-03-29 07:00] VITALS: TEMP 96.9
[2025-03-29] MEDS: LACTATED RINGERS 1,000 ML IV SCH (07:11)
[2025-03-29] MEDS ORDERED: PROPOFOL 10 MG/ML 20 ML VIAL IV ONE (07:23)
[2025-03-29] MEDS ORDERED: fentaNYL (PF) 50 MCG/ML 2 ML AMP ONE (07:23)
[2025-03-29] MEDS: EPINEPHrine (PF) 0.3 ML in BALANCED SALT IRRIG SOLN COMB2 500 ML IRRIGATION ONE (07:45)
[2025-03-29] MEDS: BALANCED SALT IRRIG SOLN COMB2 15 ML IRRIG.SOLN INTRAOCULA ONE ×2 (07:49)
[2025-03-29] MEDS: TIMOLOL 0.5% OPHTH DROPS 5 ML BTL OP PRN (07:59)
[2025-03-29] MEDS: MOXIFLOXACIN HCL 0.5% DROPS 3 ML BTL OP PRN (07:59)
[2025-03-29] MEDS: BUPIVACAINE (PF) 0.5% 4.5 ML, HYALURONIDASE, HUMAN RECOMB 150 UNIT, LIDOCAINE 2% (PF) 9... IO PRN (08:00)
[2025-03-29] MEDS: EPINEPHrine (PF) 1 MG/ML AMP SQ ONE (08:01)
--- NOTE | 2025-03-29 09:45 | P.OP ---
Date of Procedure: 03/29/25 Preoperative Diagnosis: mechanical dislocation of IOL Postoperative Diagnosis: same Procedure(s) Performed: reposition and scleral suture of IOL Implants: none Anesthesia: MAC Surgeon: Andre Bojorquez Pathology: none sent Condition: stable Disposition: same day Indications for Procedure: poor vision Operative Findings: no complications
[2025-03-29 09:48] VITALS: RESP 18
[2025-03-29 10:10] VITALS: BP 126/77; PULSE 48
--- NOTE | 2025-03-29 23:55 | OP ---
OPERATIVE REPORT DATE OF SERVICE : 03/29/2025 PREOPERATIVE DIAGNOSIS: Dislocated IOL, left eye. POSTOPERATIVE DIAGNOSIS: Dislocated IOL, left eye. OPERATION: Reposition of dislocated intraocular lens of the left eye. ANESTHESIA: Retrobulbar. ESTIMATED BLOOD LOSS: Less than 5 mL. SPECIMEN TAKEN: None. NARRATIVE: After obtaining the appropriate consent, the patient was brought to the operating room. There, she was placed under cardiac monitoring and prepped and draped in the usual sterile manner. She was approached from her left temporal side. The patient's history is that she had undergone cataract implant surgery in about 2009 and recently began to experience marked change in vision from her left eye. It was identified at that point in time that the lens had begun to sundown from where it had previously been well positioned. 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 Therefore, she has been brought to surgery to correct the loss of vision due to an intraocular lens, which no longer remains in a functional position Foresight. At the 3 o'clock position, a 2.5 mm keratome was used to create a self-sealing corneal flap incision. Through this opening, Amvisc was used to stabilize the anterior chamber and tamponade any potential vitreous, which may try to present itself into the anterior chamber. The lens was still encased within its capsule, but particularly the superior haptic was identified as free-floating within the eye. The inferior haptic appeared to be moving posteriorly, probably related to stressed and stretched zonular attachments. Therefore, using a procedure called a Armenta pocket, 10-0 Prolene on a double-armed STC6 was used to suture the haptic to the superior temporal area identified at the beginning of the case and this was followed by suturing the inferior haptic in the inferonasal quadrant of the eye due to the marked laxity which was appreciated during the procedure using the same Devin pocket technique. There was no evidence of any need for a vitrectomy. The remaining viscoelastic was removed from the anterior chamber under irrigation and aspiration and the eye was brought to normal intraocular pressure through the temporal incision, which was then hydrated with balanced salt solution. She received 2 drops of 0.5% timolol followed by 2 drops of moxifloxacin, was then lightly patched and shielded in the usual manner. There were no complications from the procedure. She tolerated the procedure well and she was returned to outpatient recovery in good condition. MMODL / IJN: [id number] /
== END 2025-03-29 10:52 | disposition home or self-care (01) ==
LOC: OR 06:08
PROVIDERS: ATTEND Ophthalmology
DX: T85.22XA Displacement of intraocular lens, initial encounter (principal); I10 Essential (primary) hypertension; E07.9 Disorder of thyroid, unspecified; H18.513 Endothelial corneal dystrophy, bilateral; H18.452 Nodular corneal degeneration, left eye; H16.223 Keratoconjunctivitis sicca, not specified as Sjogren's, bilateral; H18.5 Hereditary corneal dystrophies; H00.023 Hordeolum internum right eye, unspecified eyelid; H00.026 Hordeolum internum left eye, unspecified eyelid; H52.12 Myopia, left eye; H52.4 Presbyopia; H52.11 Myopia, right eye; H52.223 Regular astigmatism, bilateral; F41.9 Anxiety disorder, unspecified; Z79.890 Hormone replacement therapy; Z79.1 Long term (current) use of non-steroidal anti-inflammatories (NSAID); Z79.899 Other long term (current) drug therapy; Z91.030 Bee allergy status; Z91.040 Latex allergy status; Z88.2 Allergy status to sulfonamides; Z91.048 Other nonmedicinal substance allergy status
CPT/HCPCS: 66825; J3470; J2003; J0171; J3010; J2704; J0665